=== PATIENT | male | born 1975 | race African-American/Black ===

== ENCOUNTER 2017-02-11 13:20 | Inpatient (IN) | payer OTHER ==
[2017-02-11 14:02] VITALS: BMI 34.8
--- NOTE | 2017-02-11 16:37 | HP ---
CIWA Score - CIWA Score Nausea/Vomitin-Mild Nausea/No Vomiting Muscle Tremors: 2 Anxiety: 1-Mildly Anxious Agitation: 1-Slight > Activity Paroxysmal Sweats: 2 Orientation: 1-Uncertain about Date Tacttile Disturbances: 1-Very Mild Itch/Numbness Auditory Disturbances: 1-Very Mild Visual Disturbances: 1-Very Mild Sensitivity Headache: 2-Mild CIWA-Ar Total Score: 13 Admission ROS BHS - HPI Chief Complaint: WITHDRAWAL SYMPTOMS Allergies/Adverse Reactions: Allergies Allergy/AdvReac Type Severity Reaction Status Date / Time fluphenazine [From Prolixin] Allergy Intermediate Swelling Verified 02/11/17 14: 39 haloperidol [From Haldol] Allergy Intermediate Swelling Verified 02/11/17 14:38 History of Present Illness: 41 Y.O. MAN WITH AN EXTENSIVE HISTORY OF ALCOHOL DEPENDENCE IS HERE SEEKING HIS FIRST ADMISSION INTO DETOX. DOES NOT HAVE A SIGNIFICANT PERIOD OF SOBRIETY. Exam Limitations: No Limitations - Ebola screening Have you traveled outside of the country in the last 21 days: No Have you had contact with anyone from an Ebola affected area: No Have you been sick,other than usual withdrawal symptoms: No Do you have a fever: No - Review of Systems Constitutional: No Symptoms Reported EENT: reports: No Symptoms Reported Respiratory: reports: No Symptoms reported Cardiac: reports: No Symptoms Reported GI: reports: No Symptoms Reported : reports: No Symptoms Reported Musculoskeletal: reports: No Symptoms Reported Integumentary: reports: No Symptoms Reported Neuro: reports: No Symptoms reported Endocrine: reports: No Symptoms Reported Hematology: reports: No Symptoms Reported Psychiatric: reports: other (H/O BIPOLAR AND SCHIZOPHRENIA) Other Systems: Reviewed and Negative Patient History - Patient Medical History Hx Anemia: No Hx Asthma: No Hx Chronic Obstructive Pulmonary Disease (COPD): No Hx Cancer: No Hx Cardiac Disorders: No Hx Congestive Heart Failure: No Hx Hypertension: No Hx Hypercholesterolemia: No Hx Pacemaker: No HX Cerebrovascular Accident: No Hx Seizures: No Hx Dementia: No Hx Diabetes: No Hx Gastrointestinal Disorders: No Hx Liver Disease: No Hx Genitourinary Disorders: No Hx Sexually Transmitted Disorders: No Hx Renal Disease (ESRD): No Hx Thyroid Disease: No Hx Human Immunodeficiency Virus (HIV): No Hx Hepatitis C: No Hx Depression: No Hx Suicide Attempt: No Hx Bipolar Disorder: Yes Hx Schizophrenia: Yes - Patient Surgical History Past Surgical History: No - PPD History Previous Implant?: Yes Documented Results: Negative w/o proof Implanted On Prior [facility] Admission?: No PPD to be Administered?: Yes - Reproductive History Patient is a Female of Child Bearing Age (11 -55 yrs old): No - Smoking Cessation Smoking history: Current every day smoker Have you smoked in the past 12 months: Yes Aproximately how many cigarettes per day: 10 Hx Chewing Tobacco Use: No Initiated information on smoking cessation: Yes 'Breaking Loose' booklet given: 02/11/17 - Substance & Tx. History Hx Alcohol Use: Yes Hx Substance Use: Yes Substance Use Type: Alcohol, Cocaine, Heroin Hx Substance Use Treatment: No - Substances Abused Alcohol Route: Oral Frequency: Daily Amount used: vodka(1 pint) Age of first use: 16 Date of Last Use: 02/11/17 Cocaine Route: Inhalation Frequency: Daily Amount used: $20 Age of first use: 18 Date of Last Use: 02/10/17 Heroin Route: Inhalation Frequency: 1-2 times per week Amount used: 1 BAG Age of first use: 18 Date of Last Use: 02/07/17 Family Disease History - Family Disease History Family History: Denies Admission Physical Exam S - Vital Signs Vital Signs: Vital Signs - 24 hr 02/11/17 14:00 Temperature 96.2 F L Pulse Rate 58 L Respiratory 18 Rate Blood Pressure 124/75 - Physical General Appearance: Yes: Disheveled, Irritable HEENTM: Yes: Hearing grossly Normal, Normal ENT Inspection, Normocephalic Respiratory: Yes: Chest Non-Tender, Lungs Clear, Normal Breath Sounds, No Respiratory Distress, No Accessory Muscle Use Neck: Yes: No masses,lesions,Nodules, Trachea in good position Breast: Yes: Within Normal Limits Cardiology: Yes: Regular Rhythm, Bradycardia Abdominal: Yes: Normal Bowel Sounds, Non Tender Genitourinary: Yes: Other (NO COMPLAINTS REPORTED) Back: Yes: Normal Inspection Musculoskeletal: Yes: full range of Motion Extremities: Yes: Normal Capillary Refill, Normal Inspection, Non-Tender Neurological: Yes: enamel finisher II-XII NML intact Integumentary: Yes: Normal Color, Dry, Warm Lymphatic: Yes: Within Normal Limits - Diagnostic (1) Alcohol dependence with uncomplicated withdrawal Current Visit: Yes Status: Chronic (2) Cocaine dependence, uncomplicated Current Visit: Yes Status: Chronic (3) Nicotine dependence Current Visit: Yes Status: Chronic Cleared for Admission [facility] - Detox or Rehab [facility] Level of Care: Medically Managed Detox Regimen/Protocol: Librium [facility] Breath Alcohol Content Breath Alcohol Content: 0 Urine Drug Screen - Results Drug Screen Negative: No Urine Drug Screen Results: LENA-Cocaine
[2017-02-11] MEDS ORDERED: ACETAMINOPHEN 325 MG TABLET (FP) PO PRN (16:48)
[2017-02-11] MEDS ORDERED: hydrOXYzine PAMOATE 50 MG CAPSULE (FP) PO PRN (16:48)
[2017-02-11] MEDS ORDERED: chlordiazePOXIDE HCL 25 MG CAPSULE PO PRN (16:48)
[2017-02-11] MEDS ORDERED: MAGNESIUM CITRATE 300 ML BOTTLE PO PRN (16:48)
[2017-02-11] MEDS ORDERED: MAG HYDROX/AL HYDROX/SIMETH 30 ML UNIT-DOSE CUP PO PRN (16:48)
[2017-02-11] MEDS ORDERED: NICOTINE POLACRILEX 2 MG GUM BC PRN (16:48)
[2017-02-11] MEDS ORDERED: MAGNESIUM HYDROX 2400MG/30ML ORAL SUSPENSION 30 ML CUP PO PRN (16:48)
[2017-02-11] MEDS ORDERED: guaiFENesin/D-METHORPHAN HB 10 ML UNIT-DOSE CUPS PO PRN (16:48)
[2017-02-11] MEDS ORDERED: MENTHOL/PHENOL 1 EACH UD MM PRN (16:48)
[2017-02-11] MEDS ORDERED: LOPERAMIDE HCL 2 MG CAPSULE PO PRN (16:48)
[2017-02-11] MEDS ORDERED: P-EPHED 60MG/TRIPROLIDI 2.5MG TABLET PO PRN (16:48)
[2017-02-11] MEDS ORDERED: chlordiazePOXIDE HCL 25 MG CAPSULE PO ONE (17:45)
[2017-02-11] MEDS ORDERED: LIDOCAINE VISCOUS 2% ORAL/TOP 20 ML UNIT-DOSE CUP MM PRN (18:42)
[2017-02-11] MEDS: IBUPROFEN 400 MG TABLET (FP) PO PRN (18:44)
[2017-02-11 22:03] LABS: URINE APPEARANCE CLEAR; URINE BILIRUBIN NEGATIVE (NEGATIVE); URINE BLOOD NEGATIVE (NEGATIVE); URINE COLOR YELLOW; URINE GLUCOSE (UA) NEGATIVE (NEGATIVE); URINE KETONE NEGATIVE (NEGATIVE); URINE LEUK ESTERASE NEGATIVE (NEGATIVE); URINE NITRITE NEGATIVE (NEGATIVE); URINE PROTEIN NEGATIVE (NEGATIVE); URINE UROBILINOGEN NEGATIVE mg/dL (0.2-1.0)
[2017-02-11] MEDS: THIAMINE HCL 100 MG TABLET (FP) PO SCH (23:40)
[2017-02-11] MEDS: chlordiazePOXIDE HCL 25 MG CAPSULE PO SCH (23:40)
[2017-02-12] MEDS: chlordiazePOXIDE HCL 25 MG CAPSULE PO SCH ×4 (06:00→22:24)
[2017-02-12] MEDS: IBUPROFEN 400 MG TABLET (FP) PO PRN ×2 (06:02→22:24)
[2017-02-12] MEDS ORDERED: NICOTINE 14 MG/24 HOURS TOPICAL PATCH TD SCH (10:00)
[2017-02-12] MEDS ORDERED: PRENATAL VITAMINS W/ FOLIC ACID TABLET (FP) PO SCH (10:00)
[2017-02-12 10:44] LABS: MCH 31.3 pg (25.7-33.7); MCHC 32.7 g/dl (32.0-35.9); MEAN CELL VOLUME 95.8 fl (80-96); MEAN PLT VOLUME 8.2 fl (7.5-11.1); PLATELET COUNT 215 K/MM3 (134-434); RDW 13.9 % (11.9-15.9); WHITE BLOOD COUNT 5.7 K/mm3 (4.0-10.0)
[2017-02-12 11:15] LABS: ALBUMIN 3.4 g/dl (3.4-5.0); ANION GAP 7 (8-16); CALCIUM 8.1 mg/dL (8.5-10.1); CO2 27 mmol/L (21-32); GLUCOSE,RANDOM 80 mg/dL (74-106)
[2017-02-12 11:19] LABS: ALK PHOS 68 U/L (45-117); BILIRUBIN,TOTAL 0.6 mg/dL (0.2-1.0); SGOT/AST 26 U/L (15-37); SGPT/ALT 33 U/L (12-78); TOT PROT 6.5 g/dl (6.4-8.2)
--- NOTE | 2017-02-12 11:52 | CONSULT ---
[facility] Psychiatric Consult - Data Date of interview: 02/12/17 Admission source: [facility] Identifying data: First admission to [facility] for this 41 y/o AA male seeking detox treatment on for alcohol,cocaine and heroin dependence.Patient is single,a father of one,homeless,unemployed and supported on food stamps. Substance Abuse History: Confirmed by patient in this interview.See current [facility] report for details : Smoking history: Current every day smoker. Have you smoked in the past 12 months: Yes. Aproximately how many cigarettes per day: 10. Hx Chewing Tobacco Use: No. Initiated information on smoking cessation: Yes. 'Breaking Loose' booklet given: 02/11/17. - Substance & Tx. History. Hx Alcohol Use: Yes. Hx Substance Use: Yes. Substance Use Type: Alcohol, Cocaine , Heroin. Hx Substance Use Treatment: No. - Substances Abused. Alcohol. Route: Oral. Frequency: Daily. Amount used: vodka(1 pint). Age of first use: 16. Date of Last Use: 02/11/17. Cocaine. Route: Inhalation. Frequency: Daily. Amount used: $20. Age of first use: 18. Date of Last Use: 02/10/17. * * Heroin. Route: Inhalation. Frequency: 1-2 times per week. Amount used: 1 BAG. Age of first use: 18. Date of Last Use: 02/07/17 Medical History: Patient endorses good general health. Psychiatric History: Patient admits to a history of " a few " psychiatric hospitalizations.Diagnosed with Schizophrena as per self-report.Prescribed seroquel 100 mg po bid.Not taken for past five days.Mr Mendoza indicates that he gets his outpatient psychiatric services at the [facility]PD clinic in [facility].He admis to one suicide attempt,via wrist-cutting,in 2006. Physical/Sexual Abuse/Trauma History: No reported history of abuse. Additional Comment: Urine Drug Screen Results: LENA-Cocaine.Noted. Mental Status Exam - Mental Status Exam Alert and Oriented to: Time, Place, Person Cognitive Function: Good Patient Appearance: Well Groomed Mood: Nervous, Withdrawn Affect: Mood Congruent Patient Behavior: Sedated (mildly sedated but able to provide meaningful history ), Fatigued, Appropriate, Cooperative Speech Pattern: Clear, Slurred Voice Loudness: Normal Thought Process: Goal Oriented Thought Disorder: Not Present Hallucinations: Denies Suicidal Ideation: Denies Homicidal Ideation: Denies Insight/Judgement: Poor Sleep: Well Appetite: Good Muscle strength/Tone: Normal Gait/Station: Normal Psychiatric Findings - Problem List ([place] 1, 2,3) (1) Alcohol dependence with uncomplicated withdrawal Current Visit: Yes Status: Acute (2) Cocaine dependence, uncomplicated Current Visit: Yes Status: Acute (3) Nicotine dependence Current Visit: Yes Status: Acute (4) Heroin dependence Current Visit: Yes Status: Acute (5) Substance induced mood disorder Current Visit: Yes Status: Acute (6) Schizophrenia Current Visit: Yes Status: Chronic Comment: Reported by patient.No symptoms elicited at time of this examination.Currently on medications/ OPD care at [facility] health clinic. - Initial Treatment Plan Initial Treatment Plan: Psychoeducation.Detoxification.Medication : seroquel 100 mg po hs.Side effects/benefits discussed with patient.Mr Davila expresses his agreement to this careplan.Observation.
--- NOTE | 2017-02-12 17:21 | PN ---
[facility] CIWA - CIWA Score Nausea/Vomitin-No Nausea/No Vomiting Muscle Tremors: 4-Moderate,w/Arms Extend Anxiety: 3 Agitation: 0-Normal Activity Paroxysmal Sweats: 3 Orientation: 2-Disoriented Date<2 days Tacttile Disturbances: 2-Mild Itch/Numbness/Burn Auditory Disturbances: 0-None Visual Disturbances: 0-None Headache: 4-Moderately Severe CIWA-Ar Total Score: 18 BHS Progress Note (SOAP) Subjective: Sweating, H/A, Tremors, Fatigue. Objective: PT. A & O X 2 (UNCERTAIN ABOUT CURRENT DAY /DATE). PT. OBSERVED AMBULATING ON UNIT. NO ACUTE DISTRESS. 02/12/17 17:20 Vital Signs Temperature 97.8 F 02/12/17 13:59 Pulse Rate 73 02/12/17 13:59 Respiratory Rate 19 02/12/17 13:59 Blood Pressure 136/82 02/12/17 13:59 O2 Sat by Pulse Oximetry (%) Laboratory Tests 02/11/17 02/12/17 02/12/17 21:00 08:00 08:00 WBC 5.7 RBC 4.65 Hgb 14.6 Hct 44.5 MCV 95.8 MCH 31.3 MCHC 32.7 RDW 13.9 Plt Count 215 MPV 8.2 Sodium 140 Potassium 4.1 Chloride 106 Carbon Dioxide 27 Anion Gap 7 L BUN 13 Creatinine 1.0 Creat Clearance w eGFR > 60 Random Glucose 80 Calcium 8.1 L Total Bilirubin 0.6 AST 26 ALT 33 Alkaline Phosphatase 68 Total Protein 6.5 Albumin 3.4 Urine Color Yellow Urine Appearance Clear Urine pH 6.0 Ur Specific [place] 1.019 Urine Protein Negative Urine Glucose (UA) Negative Urine Ketones Negative Urine Blood Negative Urine Nitrite Negative Urine Bilirubin Negative Urine Urobilinogen Negative RPR Titer 02/12/17 08:00 WBC RBC Hgb Hct MCV MCH MCHC RDW Plt Count MPV Sodium Potassium Chloride Carbon Dioxide Anion Gap BUN Creatinine Creat Clearance w eGFR Random Glucose Calcium Total Bilirubin AST ALT Alkaline Phosphatase Total Protein Albumin Urine Color Urine Appearance Urine pH Ur Specific [place] Urine Protein Urine Glucose (UA) Urine Ketones Urine Blood Urine Nitrite Urine Bilirubin Urine Urobilinogen RPR Titer Nonreactive LABS NOTED. Assessment: 02/12/17 17:20 WITHDRAWAL SYMPTOMS. Plan: CONTINUE DETOX.
[2017-02-12] MEDS ORDERED: QUEtiapine FUMARATE 100 MG TABLET (FP) PO SCH (22:00)
[2017-02-12] MEDS: THIAMINE HCL 100 MG TABLET (FP) PO SCH (22:23)
[2017-02-12 23:18] LABS: URINE LEUK ESTERASE Negative (NEGATIVE)
[2017-02-13] MEDS: chlordiazePOXIDE HCL 25 MG CAPSULE PO SCH (06:00)
[2017-02-13 06:48] VITALS: BP 124/84; PULSE 59; TEMP 97.6
--- NOTE | 2017-02-13 12:21 | DS ---
[facility] Detox Discharge Summary Admission Date: 02/11/17 Discharge Date: 02/13/17 - History Present History: Alcohol Dependence, Cocaine Dependence, Opioid Dependence Pertinent Past History: Denies - Physical Exam Results Vital Signs: Vital Signs Temperature 97.6 F 02/13/17 06:47 Pulse Rate 59 L 02/13/17 06:47 Respiratory Rate 18 02/13/17 06:47 Blood Pressure 124/84 02/13/17 06:47 O2 Sat by Pulse Oximetry (%) Pertinent Admission Physical Exam Findings: Withdrawal symptoms Laboratory Tests 02/11/17 02/12/17 02/12/17 21:00 08:00 08:00 WBC 5.7 RBC 4.65 Hgb 14.6 Hct 44.5 MCV 95.8 MCH 31.3 MCHC 32.7 RDW 13.9 Plt Count 215 MPV 8.2 Sodium 140 Potassium 4.1 Chloride 106 Carbon Dioxide 27 Anion Gap 7 L BUN 13 Creatinine 1.0 Creat Clearance w eGFR > 60 Random Glucose 80 Calcium 8.1 L Total Bilirubin 0.6 AST 26 ALT 33 Alkaline Phosphatase 68 Total Protein 6.5 Albumin 3.4 Urine Color Yellow Urine Appearance Clear Urine pH 6.0 Ur Specific [place] 1.019 Urine Protein Negative Urine Glucose (UA) Negative Urine Ketones Negative Urine Blood Negative Urine Nitrite Negative Urine Bilirubin Negative Urine Urobilinogen Negative Ur Leukocyte Esterase Negative RPR Titer 02/12/17 08:00 WBC RBC Hgb Hct MCV MCH MCHC RDW Plt Count MPV Sodium Potassium Chloride Carbon Dioxide Anion Gap BUN Creatinine Creat Clearance w eGFR Random Glucose Calcium Total Bilirubin AST ALT Alkaline Phosphatase Total Protein Albumin Urine Color Urine Appearance Urine pH Ur Specific [place] Urine Protein Urine Glucose (UA) Urine Ketones Urine Blood Urine Nitrite Urine Bilirubin Urine Urobilinogen Ur Leukocyte Esterase RPR Titer Nonreactive Labs noted - Medication Discharge Medications: Ambulatory Orders Diphenhydramine [Benadryl Capsule -] 50 mg PO HS 02/11/17 Quetiapine Fumarate [Seroquel -] 100 mg PO BID 02/11/17 - Diagnosis (1) Opiate dependence Status: Chronic (2) Alcohol dependence with uncomplicated withdrawal Status: Acute (3) Cocaine dependence, uncomplicated Status: Chronic (4) Nicotine dependence Status: Chronic Qualifiers: Nicotine product type: cigarettes Substance use status: uncomplicated Qualified Code(s): F17.210 - Nicotine dependence, cigarettes, uncomplicated - AMA Did Patient Leave Against Medical Advice: Yes (F/U with PCP within 3 days or sooner if warranted)
[2017-02-13] MEDS ORDERED: chlordiazePOXIDE 5 MG CAPSULE PO SCH (23:00)
[2017-02-14] MEDS ORDERED: chlordiazePOXIDE HCL 10 MG CAPSULE PO SCH (23:00)
--- NOTE | 2017-02-15 01:57 | EKG ---
Test Reason : Blood Pressure : / mmHG Vent. Rate : 064 BPM Atrial Rate : 064 BPM P-R Int : 174 ms QRS Dur : 094 ms QT Int : 396 ms P-R-T Axes : 055 067 057 degrees QTc Int : 408 ms NORMAL SINUS RHYTHM WITH SINUS ARRHYTHMIA NORMAL ECG NO PREVIOUS ECGS AVAILABLE Confirmed by ANGELI CASANOVA, MARIANN ([id number]) on 02/15/2017 1:57:29 AM Referred By: Confirmed By:MARIANN SUH MD
== END 2017-02-13 08:40 | disposition left against medical advice (07) | DRG 770 ==
LOC: YASAS 13:20 → Y3N 17:16
PROVIDERS: ADMIT Internal Medicine; ATTEND Internal Medicine
PROC: HZ2ZZZZ Detoxification Services for Substance Abuse Treatment (ICD-10-PCS; principal; 2017-02-11)
DX: F11.23 Opioid dependence with withdrawal (principal); F10.230 Alcohol dependence with withdrawal, uncomplicated; F14.20 Cocaine dependence, uncomplicated; F17.210 Nicotine dependence, cigarettes, uncomplicated; F19.24 Other psychoactive substance dependence with psychoactive substance-induced mood disorder; F20.9 Schizophrenia, unspecified
CPT/HCPCS: 36415; 80053; 81003; 85027; 86593; 93005; 93010

== ENCOUNTER 2017-03-22 13:08 | Inpatient (IN) | payer OTHER ==
--- NOTE | 2017-03-22 21:50 | HP ---
COWS - Scale Resting Pulse: 0= [place] 80 or Below Sweatin=Flushed/Facial Moisture Restless Observation: 1= Difficult to Sit Still Pupil Size: 1= Pupils >than Normal Bone or Joint Aches: 4=Acute Joint/Muscle Pain Runny Nose/ Eye Tearin= None GI Upset > 30mins: 2= Nausea/Diarrhea ([place]ARR[place] X 4) Tremor Observation: 2= Slight Tremor Visible Yawning Observation: 0= None Anxiety or Irritability: 4=Extreme Anxiety Goose Flesh Skin: 0=Smooth Skin COWS Score: 16 CIWA Score - CIWA Score Nausea/Vomitin Muscle Tremors: 4-Moderate,w/Arms Extend Anxiety: 3 Agitation: 2 Paroxysmal Sweats: No Perspiration Orientation: 1-Uncertain about Date Tacttile Disturbances: 0-None Auditory Disturbances: 0-None Visual Disturbances: 0-None Headache: 4-Moderately Severe CIWA-Ar Total Score: 17 Admission ROS BHS - HPI Chief Complaint: Withdrawal symptoms Allergies/Adverse Reactions: Allergies Allergy/AdvReac Type Severity Reaction Status Date / Time fluphenazine [From Prolixin] Allergy Intermediate Swelling Verified 03/22/17 18: 54 haloperidol [From Haldol] Allergy Intermediate Swelling Verified 03/22/17 18:54 History of Present Illness: 41 years old male with a long history of alcohol and benzodiazepine dependence is admitted to detox. Patient has been in previous detox and reports insignificant period of sobriety. Patient reports medical history of HTN and depression. He denies suicidal ideation at this time. Exam Limitations: No Limitations - Ebola screening Have you traveled outside of the country in the last 21 days: No Have you had contact with anyone from an Ebola affected area: No Have you been sick,other than usual withdrawal symptoms: No - Review of Systems Constitutional: Loss of Appetite, Malaise, Night Sweats, Changes in sleep, Weakness EENT: reports: Blurred Vision Respiratory: reports: No Symptoms reported Cardiac: reports: No Symptoms Reported GI: reports: Diarrhea, Nausea, Poor Appetite, Poor Fluid Intake, Vomiting : reports: No Symptoms Reported Musculoskeletal: reports: Back Pain, Muscle Pain, Muscle Weakness Neuro: reports: Headache, Tingling, Tremors Endocrine: reports: Flushing Hematology: reports: No Symptoms Reported Psychiatric: reports: Orientated x3, Agitated, Anxious Other Systems: Reviewed and Negative Patient History - Patient Medical History Hx Anemia: No Hx Asthma: No Hx Chronic Obstructive Pulmonary Disease (COPD): No Hx Cardiac Disorders: No Hx Congestive Heart Failure: No Hx Hypertension: Yes Hx Hypercholesterolemia: No Hx Pacemaker: No HX Cerebrovascular Accident: No Hx Seizures: No Hx Dementia: No Hx Diabetes: No Hx Gastrointestinal Disorders: No Hx Liver Disease: No Hx Genitourinary Disorders: No Hx Sexually Transmitted Disorders: No Hx Renal Disease (ESRD): No Hx Thyroid Disease: No Hx Human Immunodeficiency Virus (HIV): No (Negative) Hx Hepatitis C: No Hx Depression: No Hx Suicide Attempt: No Hx Bipolar Disorder: Yes Hx Schizophrenia: Yes - Patient Surgical History Past Surgical History: No Hx Neurologic Surgery: No Hx Cataract Extraction: No Hx Cardiac Surgery: No Hx Lung Surgery: No Hx Abdominal Surgery: No Hx Appendectomy: No Hx Cholecystectomy: No Hx Genitourinary Surgery: No Hx Section: No Hx Orthopedic Surgery: No Anesthesia Reaction: No - PPD History Previous Implant?: No Documented Results: Negative w/proof Implanted On Prior [facility] Admission?: No PPD to be Administered?: Yes - Reproductive History Patient is a Female of Child Bearing Age (11 -55 yrs old): No (MALE) - Smoking Cessation Smoking history: Current every day smoker Have you smoked in the past 12 months: Yes Aproximately how many cigarettes per day: 10 Hx Chewing Tobacco Use: No Initiated information on smoking cessation: Yes 'Breaking Loose' booklet given: 03/22/17 - Substance & Tx. History Hx Alcohol Use: Yes Hx Substance Use: Yes Substance Use Type: Cocaine Hx Substance Use Treatment: Yes ([facility]) - Substances Abused Alcohol Route: Oral Frequency: Daily Amount used: liquor- 3 pints, beer- 2 six packs Age of first use: 21 Date of Last Use: 03/21/17 Alprazolam (Xanax) Route: Oral Frequency: Daily Amount used: 4mg Age of first use: 36 Date of Last Use: 03/21/17 Family Disease History - Family Disease History Family History: Denies Admission Physical Exam S - Vital Signs Vital Signs: Vital Signs - 24 hr 03/22/17 16:03 Temperature 96.6 F L Pulse Rate 75 Respiratory 20 Rate Blood Pressure 157/106 - Physical General Appearance: Yes: Moderate Distress HEENTM: Yes: EOMI, Normal Voice, GOMEZ Respiratory: Yes: Lungs Clear, Normal Breath Sounds, No Respiratory Distress Neck: Yes: Supple Breast: Yes: Breast Exam Deferred Cardiology: Yes: Regular Rhythm, Regular Rate, S1, S2 Abdominal: Yes: Normal Bowel Sounds, Soft Genitourinary: Yes: Within Normal Limits Back: Yes: Within Normal Limits Musculoskeletal: Yes: Back pain, Muscle Pain, Muscle weakness Extremities: Yes: Tremors Neurological: Yes: Alert, Normal Mood/Affect, Normal Response Integumentary: Yes: Warm Lymphatic: Yes: Within Normal Limits - Diagnostic (1) Sedative, hypnotic or anxiolytic dependence with withdrawal, uncomplicated Current Visit: Yes Status: Chronic (2) HTN (hypertension) Current Visit: Yes Status: Chronic (3) Depression Current Visit: Yes Status: Chronic (4) Alcohol dependence with uncomplicated withdrawal Current Visit: Yes Status: Chronic (5) Cocaine dependence, uncomplicated Current Visit: Yes Status: Chronic (6) Nicotine dependence Current Visit: Yes Status: Chronic Qualifiers: Nicotine product type: cigarettes Substance use status: uncomplicated Qualified Code(s): F17.210 - Nicotine dependence, cigarettes, uncomplicated Cleared for Admission [facility] - Detox or Rehab [facility] Level of Care: Medically Managed Detox Regimen/Protocol: Valium [facility] Breath Alcohol Content Breath Alcohol Content: 0 Urine Drug Screen - Results Drug Screen Negative: No Urine Drug Screen Results: LENA-Cocaine, BZO-Benzodiazepines
[2017-03-22] MEDS ORDERED: LOPERAMIDE HCL 2 MG CAPSULE PO PRN (21:59)
[2017-03-22] MEDS ORDERED: MENTHOL/PHENOL 1 EACH UD MM PRN (21:59)
[2017-03-22] MEDS ORDERED: MAGNESIUM HYDROX 2400MG/30ML ORAL SUSPENSION 30 ML CUP PO PRN (21:59)
[2017-03-22] MEDS ORDERED: guaiFENesin/D-METHORPHAN HB 10 ML UNIT-DOSE CUPS PO PRN (21:59)
[2017-03-22] MEDS ORDERED: ACETAMINOPHEN 325 MG TABLET (FP) PO PRN (21:59)
[2017-03-22] MEDS ORDERED: diazePAM 5 MG TABLET PO ONE ×3 (21:59→23:30)
[2017-03-22] MEDS ORDERED: MAG HYDROX/AL HYDROX/SIMETH 30 ML UNIT-DOSE CUP PO PRN (21:59)
[2017-03-22] MEDS ORDERED: diazePAM 5 MG TABLET PO PRN ×2 (21:59→22:56)
[2017-03-22] MEDS ORDERED: MAGNESIUM CITRATE 300 ML BOTTLE PO PRN (21:59)
[2017-03-22] MEDS ORDERED: P-EPHED 60MG/TRIPROLIDI 2.5MG TABLET PO PRN (21:59)
[2017-03-22] MEDS ORDERED: IBUPROFEN 400 MG TABLET (FP) PO PRN (21:59)
[2017-03-22 22:06] VITALS: BMI 32.1
[2017-03-22] MEDS: THIAMINE HCL 100 MG TABLET (FP) PO SCH (23:24)
[2017-03-22] MEDS: diazePAM 5 MG TABLET PO SCH ×4 (23:24→23:25)
[2017-03-22 23:59] LABS: URINE APPEARANCE CLOUDY; URINE BILIRUBIN NEGATIVE (NEGATIVE); URINE BLOOD NEGATIVE (NEGATIVE); URINE COLOR YELLOW; URINE GLUCOSE (UA) NEGATIVE (NEGATIVE); URINE KETONE NEGATIVE (NEGATIVE); URINE LEUK ESTERASE TRACE (NEGATIVE); URINE NITRITE NEGATIVE (NEGATIVE); URINE PROTEIN NEGATIVE (NEGATIVE)
[2017-03-23 00:24] LABS: GRANULAR CASTS 42 /lpf; URINE HYALINE CAST 5 /lpf; URINE MUCUS RARE; YEAST MODERATE
[2017-03-23] MEDS: diazePAM 5 MG TABLET PO SCH ×3 (06:47→22:35)
--- NOTE | 2017-03-23 09:25 | CONSULT ---
[facility] Psychiatric Consult - Data Date of interview: 03/23/17 Admission source: [facility] Identifying data: This is 41 years old male with no psychiatric hospitalization history iontoxicated with: Alcohol, Xanax, Cocaine and Nicotine Substance Abuse History: - Smoking Cessation. Smoking history: Current every day smoker. Have you smoked in the past 12 months: Yes. Aproximately how many cigarettes per day: 10. Hx Chewing Tobacco Use: No. Initiated information on smoking cessation: Yes. 'Breaking Loose' booklet given: 03/22/17. - Substance & Tx. History. Hx Alcohol Use: Yes. Hx Substance Use: Yes. Substance Use Type : Cocaine. Hx Substance Use Treatment: Yes ([facility] - Substances Abused. Alcohol. Route: Oral. Frequency: Daily. Amount used: liquor- 3 pints, beer- 2 six packs. Age of first use: 21. Date of Last Use: 03/21/17. Alprazolam (Xanax). Route: Oral. Frequency: Daily. Amount used: 4mg. Age of first use: 36. Date of Last Use: 03/21/17 Medical History: HTN Psychiatric History: Patient reports history of depression, denies suicidal history, reports talong prior to admission: Seroquel 100mg po bid. Benadryl 50mg po qhs Physical/Sexual Abuse/Trauma History: Denies Additional Comment: Seroquel 100mg po bid. Benadryl 50mg po qhs Mental Status Exam - Mental Status Exam Alert and Oriented to: Person Cognitive Function: Fair Patient Appearance: Unkempt Mood: Sad Affect: Mood Congruent Patient Behavior: Sedated Speech Pattern: Delayed Voice Loudness: Mildly Soft/Quiet Thought Process: Circumstantial Thought Disorder: Being Controlled Hallucinations: Denies Suicidal Ideation: Denies Homicidal Ideation: Denies Insight/Judgement: Fair Sleep: Difficulty falling asleep Appetite: Fair Muscle strength/Tone: Normal Gait/Station: Shuffling Additional Comments: Seroquel 100mg po bid. Benadryl 50mg po qhs Psychiatric Findings - Problem List ([place] 1, 2,3) (1) Alcohol dependence with uncomplicated withdrawal Current Visit: Yes Status: Chronic (2) Cocaine dependence, uncomplicated Current Visit: Yes Status: Chronic (3) Nicotine dependence Current Visit: Yes Status: Chronic Qualifiers: Nicotine product type: cigarettes Substance use status: uncomplicated Qualified Code(s): F17.210 - Nicotine dependence, cigarettes, uncomplicated (4) Sedative, hypnotic or anxiolytic dependence with withdrawal, uncomplicated Current Visit: Yes Status: Chronic (5) Heroin dependence Current Visit: No Status: Acute (6) Substance induced mood disorder Current Visit: No Status: Acute (7) Opiate dependence Current Visit: No Status: Chronic - Initial Treatment Plan Initial Treatment Plan: Seroquel 100mg po bid. Benadryl 50mg po qhs
--- NOTE | 2017-03-23 10:17 | EKG ---
Test Reason : Blood Pressure : / mmHG Vent. Rate : 069 BPM Atrial Rate : 069 BPM P-R Int : 150 ms QRS Dur : 098 ms QT Int : 390 ms P-R-T Axes : 049 057 055 degrees QTc Int : 417 ms NORMAL SINUS RHYTHM NONSPECIFIC T WAVE ABNORMALITY ABNORMAL ECG WHEN COMPARED WITH ECG OF 11-FEB-2017 18:47, NO SIGNIFICANT CHANGE WAS FOUND Confirmed by DESTINY CASANOVA, YUNIER ([id number]) on 03/23/2017 10:16:50 AM Referred By: Confirmed By:YUNIER DIXON MD
[2017-03-23] MEDS: diazePAM 5 MG TABLET PO PRN (10:24)
[2017-03-23] MEDS: PRENATAL VITAMINS W/ FOLIC ACID TABLET (FP) PO SCH (10:24)
[2017-03-23] MEDS: QUEtiapine FUMARATE 100 MG TABLET (FP) PO SCH ×2 (10:25→22:37)
[2017-03-23 10:26] LABS: ALBUMIN 3.7 g/dl (3.4-5.0); ANION GAP 8 (8-16); BLOOD UREA NITROGEN 11 mg/dL (7-18); CALCIUM 8.8 mg/dL (8.5-10.1); CHLORIDE 104 mmol/L (98-107); CO2 29 mmol/L (21-32); CREATININE 0.9 mg/dL (0.7-1.3); GLUCOSE,RANDOM 95 mg/dL (74-106); POTASSIUM 3.7 mmol/L (3.5-5.1); SGOT/AST 34 U/L (15-37); SODIUM 141 mmol/L (136-145)
[2017-03-23 10:40] LABS: HEMATOCRIT 43.1 % (35.4-49); MCH 30.9 pg (25.7-33.7); MCHC 32.5 g/dl (32.0-35.9); MEAN CELL VOLUME 94.9 fl (80-96); MEAN PLT VOLUME 7.8 fl (7.5-11.1); PLATELET COUNT 228 K/MM3 (134-434); RBC 4.54 M/mm3 (4.00-5.60); RDW 13.6 % (11.9-15.9); WHITE BLOOD COUNT 7.1 K/mm3 (4.0-10.0)
[2017-03-23 11:37] LABS: ALK PHOS 81 U/L (45-117); BILIRUBIN,TOTAL 0.3 mg/dL (0.2-1.0); TOT PROT 6.9 g/dl (6.4-8.2)
--- NOTE | 2017-03-23 12:41 | PN ---
S CIWA - CIWA Score Nausea/Vomitin Muscle Tremors: 2 Anxiety: 3 Agitation: 3 Paroxysmal Sweats: 3 Orientation: 0-Oriented Tacttile Disturbances: 2-Mild Itch/Numbness/Burn Auditory Disturbances: 0-None Visual Disturbances: 0-None Headache: 1-Very Mild CIWA-Ar Total Score: 16 BHS COWS - Scale Resting Pulse: 1= NE 81-100 Sweatin= Chills/Flushing Restless Observation: 1= Difficult to Sit Still Pupil Size: 1= Pupils >than Normal Bone or Joint Aches: 2= Severe Diffuse Aches Runny Nose/ Eye Tearin= Nasal Congestion GI Upset > 30mins: 1= Stomach Cramp Tremor Observation of Outstretched Hands: 1= Tremor Erwin, Not Seen Yawning Observation: 1= 1-2x During Session Anxiety or Irritability: 2=Irritable/Anxious Goose Flesh Skin: 0=Smooth Skin COWS Score: 12 S Progress Note (SOAP) Subjective: IS , sweats, headache ,feet pins and needles Vital Signs Temperature 98.2 F 03/23/17 10:32 Pulse Rate 85 03/23/17 10:32 Respiratory Rate 20 03/23/17 10:32 Blood Pressure 150/91 03/23/17 10:32 O2 Sat by Pulse Oximetry (%) Laboratory Tests 03/22/17 03/23/17 03/23/17 20:45 07:00 07:00 WBC 7.1 RBC 4.54 Hgb 14.0 Hct 43.1 MCV 94.9 MCH 30.9 MCHC 32.5 RDW 13.6 Plt Count 228 MPV 7.8 Sodium 141 Potassium 3.7 Chloride 104 Carbon Dioxide 29 Anion Gap 8 BUN 11 Creatinine 0.9 Creat Clearance w eGFR > 60 Random Glucose 95 Calcium 8.8 Total Bilirubin 0.3 D AST 34 D Alkaline Phosphatase 81 Total Protein 6.9 Albumin 3.7 Urine Color Yellow Urine Appearance Cloudy Urine pH 6.0 Ur Specific Goodman 1.023 Urine Protein Negative Urine Glucose (UA) Negative Urine Ketones Negative Urine Blood Negative Urine Nitrite Negative Urine Bilirubin Negative Urine Urobilinogen 2.0 Ur Leukocyte Esterase Trace Urine WBC (Auto) 10 Urine RBC (Auto) 6 Hyaline Casts 5 Granular Casts 42 Urine Mucus Rare Urine Yeast Moderate RPR Titer 03/23/17 07:00 WBC RBC Hgb Hct MCV MCH MCHC RDW Plt Count MPV Sodium Potassium Chloride Carbon Dioxide Anion Gap BUN Creatinine Creat Clearance w eGFR Random Glucose Calcium Total Bilirubin AST Alkaline Phosphatase Total Protein Albumin Urine Color Urine Appearance Urine pH Ur Specific Goodman Urine Protein Urine Glucose (UA) Urine Ketones Urine Blood Urine Nitrite Urine Bilirubin Urine Urobilinogen Ur Leukocyte Esterase Urine WBC (Auto) Urine RBC (Auto) Hyaline Casts Granular Casts Urine Mucus Urine Yeast RPR Titer Nonreactive pt lying in bed feet w/o swelling Assessment: 03/23/17 12:43 withdrawal sx's neuropathy likely etoh Plan: cont. detox increase fluids neurontin 100mg tid
[2017-03-23 12:55] LABS: SGPT/ALT 40 U/L (12-78)
[2017-03-23] MEDS: GABAPENTIN 100 MG CAPSULE (FP) PO SCH ×2 (14:47→22:34)
--- NOTE | 2017-03-23 14:48 | EKG ---
Test Reason : Blood Pressure : / mmHG Vent. Rate : 070 BPM Atrial Rate : 070 BPM P-R Int : 158 ms QRS Dur : 090 ms QT Int : 398 ms P-R-T Axes : 057 053 051 degrees QTc Int : 429 ms NORMAL SINUS RHYTHM NORMAL ECG WHEN COMPARED WITH ECG OF 22-MAR-2017 23:56, T WAVE INVERSION NOW EVIDENT IN ANTERIOR LEADS Confirmed by DESTINY CASANOVA, YUNIER ([id number]) on 03/23/2017 2:47:56 PM Referred By: Confirmed By:YUNIER DIXON MD
[2017-03-23] MEDS ORDERED: diphenhydrAMINE HCL 25 MG CAPSULE (FP) PO ONE (20:44)
[2017-03-23] MEDS ORDERED: diphenhydrAMINE HCL 50 MG CAPSULE PO SCH (22:00)
[2017-03-23] MEDS: THIAMINE HCL 100 MG TABLET (FP) PO SCH (22:35)
[2017-03-23] MEDS ORDERED: cloNIDine HCL 0.1 MG TABLET PO ONE (23:15)
[2017-03-24] MEDS: diazePAM 5 MG TABLET PO PRN (02:49)
[2017-03-24] MEDS: GABAPENTIN 100 MG CAPSULE (FP) PO SCH ×2 (08:09→14:05)
[2017-03-24] MEDS ORDERED: diazePAM 5 MG TABLET PO SCH ×3 (10:00)
--- NOTE | 2017-03-24 10:11 | PN ---
[facility] CIWA - CIWA Score Nausea/Vomitin-No Nausea/No Vomiting Muscle Tremors: 4-Moderate,w/Arms Extend Anxiety: 4-Mod. Anxious/Guarded Agitation: 3 Paroxysmal Sweats: 1-Minimal Palms Moist Orientation: 0-Oriented Tacttile Disturbances: 0-None Auditory Disturbances: 0-None Visual Disturbances: 0-None Headache: 0-None Present CIWA-Ar Total Score: 12 BHS Progress Note (SOAP) Subjective: tremor anxiety sweat Objective: 03/24/17 10:12 Vital Signs Temperature 97.9 F 03/24/17 09:44 Pulse Rate 76 03/24/17 09:44 Respiratory Rate 18 03/24/17 09:44 Blood Pressure 145/104 03/24/17 09:44 O2 Sat by Pulse Oximetry (%) Laboratory Last Values WBC 7.1 K/mm3 (4.0-10.0) 03/23/17 07:00 RBC 4.54 M/mm3 (4.00-5.60) 03/23/17 07:00 Hgb 14.0 GM/dL (11.7-16.9) 03/23/17 07:00 Hct 43.1 % (35.4-49) 03/23/17 07:00 MCV 94.9 fl (80-96) 03/23/17 07:00 MCH 30.9 pg (25.7-33.7) 03/23/17 07:00 MCHC 32.5 g/dl (32.0-35.9) 03/23/17 07:00 RDW 13.6 % (11.9-15.9) 03/23/17 07:00 Plt Count 228 K/MM3 (134-434) 03/23/17 07:00 MPV 7.8 fl (7.5-11.1) 03/23/17 07:00 Sodium 141 mmol/L (136-145) 03/23/17 07:00 Potassium 3.7 mmol/L (3.5-5.1) 03/23/17 07:00 Chloride 104 mmol/L (98-107) 03/23/17 07:00 Carbon Dioxide 29 mmol/L (21-32) 03/23/17 07:00 Anion Gap 8 (8-16) 03/23/17 07:00 BUN 11 mg/dL (7-18) 03/23/17 07:00 Creatinine 0.9 mg/dL (0.7-1.3) 03/23/17 07:00 Creat Clearance w eGFR > 60 (>60) 03/23/17 07:00 Random Glucose 95 mg/dL (74-106) 03/23/17 07:00 Calcium 8.8 mg/dL (8.5-10.1) 03/23/17 07:00 Total Bilirubin 0.3 mg/dL (0.2-1.0) D 03/23/17 07:00 AST 34 U/L (15-37) D 03/23/17 07:00 ALT 40 U/L (12-78) D 03/23/17 07:00 Alkaline Phosphatase 81 U/L (45-117) 03/23/17 07:00 Total Protein 6.9 g/dl (6.4-8.2) 03/23/17 07:00 Albumin 3.7 g/dl (3.4-5.0) 03/23/17 07:00 Urine Color Yellow 03/22/17 20:45 Urine Appearance Cloudy 03/22/17 20:45 Urine pH 6.0 (5.0-8.0) 03/22/17 20:45 Ur Specific [place] 1.023 (1.001-1.035) 03/22/17 20:45 Urine Protein Negative (NEGATIVE) 03/22/17 20:45 Urine Glucose (UA) Negative (NEGATIVE) 03/22/17 20:45 Urine Ketones Negative (NEGATIVE) 03/22/17 20:45 Urine Blood Negative (NEGATIVE) 03/22/17 20:45 Urine Nitrite Negative (NEGATIVE) 03/22/17 20:45 Urine Bilirubin Negative (NEGATIVE) 03/22/17 20:45 Urine Urobilinogen 2.0 mg/dL (0.2-1.0) 03/22/17 20:45 Ur Leukocyte Esterase Trace (NEGATIVE) 03/22/17 20:45 Urine WBC (Auto) 10 /hpf (3-5) 03/22/17 20:45 Urine RBC (Auto) 6 /hpf (0-3) 03/22/17 20:45 Hyaline Casts 5 /lpf 03/22/17 20:45 Granular Casts 42 /lpf 03/22/17 20:45 Urine Mucus Rare 03/22/17 20:45 Urine Yeast Moderate 03/22/17 20:45 RPR Titer Nonreactive (NONREACTIVE) 03/23/17 07:00 Hepatitis C Antibody >11.0 s/co ratio (0.0-0.9) H 03/22/17 07:00 lab noted Assessment: 03/24/17 10:12 withdrawal sx Plan: continue detox
[2017-03-24] MEDS ORDERED: cloNIDine HCL 0.1 MG TABLET PO ONE (10:21)
[2017-03-24] MEDS: QUEtiapine FUMARATE 100 MG TABLET (FP) PO SCH (11:43)
[2017-03-24] MEDS: PRENATAL VITAMINS W/ FOLIC ACID TABLET (FP) PO SCH (11:43)
--- NOTE | 2017-03-24 13:25 | PN ---
Psychiatric Progress Note Vital Signs: Vital Signs Period Temp Pulse Resp BP Sys/Aragno Pulse Ox Last 24 Hr 97.4 F-98.2 F 67-115 18-20 145-161/86-104 Date of Session: 03/24/17 Chief Complaint:: Gitation, irritability, anxiety HPI: As per nursing report patient has neen irritable, intrussive,ansious and asking psychietric evaluation. Chart revewed, patient evaluated at bedside, reports needs guillermo Seroquel, reports allergy to Haldol and Prolixin. Denioes suicidal and homicidal ideation Current Medications: Active Medications Generic Name Dose Route Start Last Admin Trade Name Freq PRN Reason Stop Dose Admin Acetaminophen 650 mg 03/22/17 21:59 Tylenol - PO Q4H PRN FEVER Al Hydroxide/Mg Hydroxide 30 ml 03/22/17 21:59 Mylanta Oral Suspension - PO Q6H PRN DYSPEPSIA Diazepam 10 mg 03/22/17 23:02 03/24/17 02:49 Valium - PO 03/25/17 23:01 10 mg Q4H PRN Administration WITHDRAWAL(CONT SUBST) Diazepam 5 mg 03/24/17 10:00 03/24/17 11:43 Valium - PO 03/25/17 22:01 5 mg BID SELENA Administration Diazepam 5 mg 03/26/17 10:00 Valium - PO 03/26/17 10:01 DAILY SELENA Diphenhydramine HCl 50 mg 03/23/17 22:00 03/23/17 22:36 Benadryl - PO 50 mg HS SELENA Administration Eucalyptus/Menthol/Phenol/Sorbitol 1 each 03/22/17 21:59 Cepastat Lozenge - MM Q4H PRN SORE THROAT Gabapentin 100 mg 03/23/17 14:00 03/24/17 08:09 Neurontin - PO Not Given TID SELENA Guaifenesin 10 ml 03/22/17 21:59 Robitussin Dm - PO Q6H PRN COUGH Ibuprofen 400 mg 03/22/17 21:59 Motrin - PO Q6H PRN PAIN LEVEL 4-6 Loperamide HCl 4 mg 03/22/17 21:59 Imodium - PO Q6H PRN DIARRHEA Magnesium Citrate 300 ml 03/22/17 21:59 Citroma - PO Q48H PRN CONSTIPATION Magnesium Hydroxide 30 ml 03/22/17 21:59 Milk Of Magnesia - PO DAILY PRN CONSTIPATION Multivit/Folic Acid/Iron 1 tab 03/23/17 10:00 03/24/17 11:43 Vitamins (Sjr) - PO 1 tab DAILY SELENA Administration Pseudoephedrine/Triprolidine 1 combo 03/22/17 21:59 Actifed - PO TID PRN NASAL CONGESTION Quetiapine Fumarate 100 mg 03/23/17 10:00 03/24/17 11:43 Seroquel - PO 100 mg BID SELENA Administration Thiamine HCl 100 mg 03/22/17 22:00 03/23/17 22:35 Vitamin B1 - PO 100 mg HS SELENA Administration Medication(s) Change(s): Seroquel 200mg po bid Mental Status Exam - Mental Status Exam Alert and Oriented to: Person Cognitive Function: Fair Patient Appearance: Unkempt Mood: Sad Affect: Mood Congruent, Flat Patient Behavior: Passive, Cooperative Speech Pattern: Delayed Voice Loudness: Moderately Soft/Quiet Thought Process: Goal Oriented Thought Disorder: Being Controlled Hallucinations: Denies Suicidal Ideation: Denies Homicidal Ideation: Denies Insight/Judgement: Fair Sleep: Difficulty falling asleep Appetite: Fair Muscle strength/Tone: Mild Hypotonicity Gait/Station: Shuffling Additional Comments: Seroquel 200mg po bid Psychiatric Treatment Plan - Problem List (1) Alcohol dependence with uncomplicated withdrawal Current Visit: Yes (2) Cocaine dependence, uncomplicated Current Visit: Yes (3) Nicotine dependence Current Visit: Yes Qualifiers: Nicotine product type: cigarettes Substance use status: uncomplicated Qualified Code(s): F17.210 - Nicotine dependence, cigarettes, uncomplicated (4) Sedative, hypnotic or anxiolytic dependence with withdrawal, uncomplicated Current Visit: Yes (5) Heroin dependence Current Visit: No (6) Substance induced mood disorder Current Visit: No (7) Opiate dependence Current Visit: No (8) Paranoid schizophrenia Current Visit: Yes Initial treatment plan: Seroquel 200mg po bid
[2017-03-24 13:42] VITALS: BP 142/86; PULSE 91; TEMP 98.4
--- NOTE | 2017-03-24 15:52 | PN ---
S Progress Note (SOAP) Subjective: I HAVE PSYCHOTIC THOUGHT Objective: 03/24/17 15:47 PATIENT DISCUSSED PSYCHOTIC THOUGHT WITH THE PSYCHIATRIST X 2 PATIENT BECAME INCOHERENT, INTERNAL PREOCCUPIED, ANXIOUSNESS, PARANOIA, CALL THE NURSES "AGENT" Assessment: 03/24/17 15:50 PSYCHOSIS Plan: AMBULANCE HAS BEEN CALLED PSYCHIATRIST INFORMED 1:1 OBSERVATION PSYCHIATRIC ER EVALUATION
--- NOTE | 2017-03-24 16:16 | PN ---
Psychiatric Progress Note Vital Signs: Vital Signs Period Temp Pulse Resp BP Sys/Arango Pulse Ox Last 24 Hr 97.4 F-98.4 F 67-115 18-20 142-161/86-104 Date of Session: 03/24/17 Chief Complaint:: violent behavior HPI: As per nursing report patient is not cooperative, not following directions , irritable, loud, uninterraptive, with high rate of speech, demending psychiatric evaluation, is not appropriate for psychiatric evaluation and even for special 1:1 observation due to his violent behavior. Patient sent to [facility] for safety and management. Current Medications: Active Medications Generic Name Dose Route Start Last Admin Trade Name Freq PRN Reason Stop Dose Admin Acetaminophen 650 mg 03/22/17 21:59 Tylenol - PO Q4H PRN FEVER Al Hydroxide/Mg Hydroxide 30 ml 03/22/17 21:59 Mylanta Oral Suspension - PO Q6H PRN DYSPEPSIA Diazepam 10 mg 03/22/17 23:02 03/24/17 02:49 Valium - PO 03/25/17 23:01 10 mg Q4H PRN Administration WITHDRAWAL(CONT SUBST) Diazepam 5 mg 03/24/17 10:00 03/24/17 11:43 Valium - PO 03/25/17 22:01 5 mg BID SELENA Administration Diazepam 5 mg 03/26/17 10:00 Valium - PO 03/26/17 10:01 DAILY SELENA Diphenhydramine HCl 50 mg 03/23/17 22:00 03/23/17 22:36 Benadryl - PO 50 mg HS SELENA Administration Eucalyptus/Menthol/Phenol/Sorbitol 1 each 03/22/17 21:59 Cepastat Lozenge - MM Q4H PRN SORE THROAT Gabapentin 100 mg 03/23/17 14:00 03/24/17 14:05 Neurontin - PO 100 mg TID SELENA Administration Guaifenesin 10 ml 03/22/17 21:59 Robitussin Dm - PO Q6H PRN COUGH Ibuprofen 400 mg 03/22/17 21:59 Motrin - PO Q6H PRN PAIN LEVEL 4-6 Loperamide HCl 4 mg 03/22/17 21:59 Imodium - PO Q6H PRN DIARRHEA Magnesium Citrate 300 ml 03/22/17 21:59 Citroma - PO Q48H PRN CONSTIPATION Magnesium Hydroxide 30 ml 03/22/17 21:59 Milk Of Magnesia - PO DAILY PRN CONSTIPATION Multivit/Folic Acid/Iron 1 tab 03/23/17 10:00 03/24/17 11:43 Vitamins (Sjr) - PO 1 tab DAILY SELENA Administration Pseudoephedrine/Triprolidine 1 combo 03/22/17 21:59 Actifed - PO TID PRN NASAL CONGESTION Quetiapine Fumarate 200 mg 03/24/17 22:00 Seroquel - PO BID SELENA Thiamine HCl 100 mg 03/22/17 22:00 03/23/17 22:35 Vitamin B1 - PO 100 mg HS SELENA Administration Medication(s) Change(s): n/a Mental Status Exam - Mental Status Exam Alert and Oriented to: Person Cognitive Function: Impaired Patient Appearance: Unkempt Mood: Hostile, Anxious, Irritable Affect: Constricted, Labile Patient Behavior: Uncooperative Speech Pattern: Excessive, Pressured Voice Loudness: Severely Loud Thought Process: Circumstantial Thought Disorder: Grandiose Hallucinations: Denies Suicidal Ideation: Denies Homicidal Ideation: Denies, Past Insight/Judgement: Impaired Sleep: Fair Appetite: Fair Muscle strength/Tone: Normal Gait/Station: Normal Additional Comments: same Psychiatric Treatment Plan - Problem List (1) Alcohol dependence with uncomplicated withdrawal Current Visit: Yes (2) Cocaine dependence, uncomplicated Current Visit: Yes (3) Nicotine dependence Current Visit: Yes Qualifiers: Nicotine product type: cigarettes Substance use status: uncomplicated Qualified Code(s): F17.210 - Nicotine dependence, cigarettes, uncomplicated (4) Sedative, hypnotic or anxiolytic dependence with withdrawal, uncomplicated Current Visit: Yes (5) Heroin dependence Current Visit: No (6) Substance induced mood disorder Current Visit: No (7) Opiate dependence Current Visit: No (8) Paranoid schizophrenia Current Visit: Yes Initial treatment plan: sent to [facility] due to violent behavior.
[2017-03-24] MEDS ORDERED: QUEtiapine FUMARATE 200 MG TABLET PO SCH (22:00)
[2017-03-26] MEDS ORDERED: diazePAM 5 MG TABLET PO SCH ×3 (10:00)
== END 2017-03-24 23:23 | DRG 774 ==
LOC: YASAS 13:08 → Y6N 18:50
PROVIDERS: ADMIT Internal Medicine; ATTEND Internal Medicine
PROC: HZ2ZZZZ Detoxification Services for Substance Abuse Treatment (ICD-10-PCS; principal; 2017-03-22)
DX: F10.230 Alcohol dependence with withdrawal, uncomplicated (principal); F13.230 Sedative, hypnotic or anxiolytic dependence with withdrawal, uncomplicated; F14.20 Cocaine dependence, uncomplicated; F17.210 Nicotine dependence, cigarettes, uncomplicated; F19.24 Other psychoactive substance dependence with psychoactive substance-induced mood disorder; F20.0 Paranoid schizophrenia; F32.9 Major depressive disorder, single episode, unspecified; F29 Unspecified psychosis not due to a substance or known physiological condition; G62.9 Polyneuropathy, unspecified; I10 Essential (primary) hypertension; Z88.8 Allergy status to other drugs, medicaments and biological substances
CPT/HCPCS: 36415; 80053; 81003; 81015; 85027; 86593; 86803; 87522; 93005; 93010; J0735

== ENCOUNTER 2018-04-23 19:11 | Inpatient (IN) | payer OTHER ==
--- NOTE | 2018-04-23 20:02 | HP ---
CIWA Score Nausea/Vomitin Muscle Tremors: 2 Anxiety: 2 Agitation: 2 Paroxysmal Sweats: 2 Orientation: 0-Oriented Tacttile Disturbances: 2-Mild Itch/Numbness/Burn Auditory Disturbances: 2-Mild Harshness/Frighten Visual Disturbances: 2-Mild Sensitivity Headache: 2-Mild CIWA-Ar Total Score: 18 - Admission Criteria [facility] Guidelines: Admission for Medically Managed Detox: Requires at least one of the followin. CIWA greater than 12 2. Seizures within the past 24 hours 3. Delirium tremens within the past 24 hours 4. Hallucinations within the past 24 hours 5. Acute intervention needed for co occurring medical disorder 6. Acute intervention needed for co occurring psychiatric disorder 7. Severe withdrawal that cannot be handled at a lower level of care (continued vomiting, continued diarrhea, abnormal vital signs) requiring intravenous medication and/or fluids 8. Admission ROS [facility] - HPI Chief Complaint: DEPENDENT ON ETOH, CRACK AND K2 Allergies/Adverse Reactions: Allergies Allergy/AdvReac Type Severity Reaction Status Date / Time fluphenazine [From Prolixin] Allergy Intermediate Swelling Verified 04/28/17 12: 10 haloperidol [From Haldol] Allergy Intermediate Swelling Verified 04/28/17 12:10 History of Present Illness: THE PT. WAS SENT FROM [facility] FOR ADMISSION TO THE DETOX UNIT HERE Exam Limitations: No Limitations - Ebola screening Have you traveled outside of the country in the last 21 days: No (N) Have you had contact with anyone from an Ebola affected area: No Have you been sick,other than usual withdrawal symptoms: No Do you have a fever: No - Review of Systems Constitutional: See HPI, Malaise, Weakness EENT: reports: See HPI Respiratory: reports: See HPI, Wheezing Cardiac: reports: See HPI GI: reports: See HPI, Nausea, Abdominal cramping : reports: No Symptoms Reported, See HPI Musculoskeletal: reports: See HPI, Muscle Pain, Muscle Weakness Integumentary: reports: See HPI, Sweating Neuro: reports: See HPI, Headache, Tremors, Weakness Endocrine: reports: See HPI Hematology: reports: See HPI Psychiatric: reports: Judgement Intact, Orientated x3, Anxious Other Systems: Reviewed and Negative Patient History - Patient Medical History Hx Anemia: No Hx Asthma: Yes Hx Chronic Obstructive Pulmonary Disease (COPD): No Hx Cancer: No Hx Cardiac Disorders: No Hx Congestive Heart Failure: No Hx Hypertension: Yes (NO MED) Hx Hypercholesterolemia: No Hx Pacemaker: No HX Cerebrovascular Accident: No Hx Seizures: No Hx Dementia: No Hx Diabetes: No Hx Gastrointestinal Disorders: No Hx Liver Disease: No Hx Genitourinary Disorders: No Hx Sexually Transmitted Disorders: No Hx Renal Disease (ESRD): No Hx Thyroid Disease: No Hx Human Immunodeficiency Virus (HIV): No (Negative LAST 02/2017) Hx Hepatitis C: No Hx Depression: No Hx Suicide Attempt: No Hx Bipolar Disorder: Yes Hx Schizophrenia: Yes - Patient Surgical History Past Surgical History: No Hx Neurologic Surgery: No Hx Cataract Extraction: No Hx Cardiac Surgery: No Hx Lung Surgery: No Hx Breast Surgery: No Hx Breast Biopsy: No Hx Abdominal Surgery: No Hx Appendectomy: No Hx Cholecystectomy: No Hx Genitourinary Surgery: No Hx Section: No Hx Orthopedic Surgery: No Anesthesia Reaction: No - Smoking Cessation Smoking history: Current every day smoker Have you smoked in the past 12 months: Yes Aproximately how many cigarettes per day: 10 Hx Chewing Tobacco Use: No Initiated information on smoking cessation: Yes 'Breaking Loose' booklet given: 04/23/18 - Substance & Tx. History Hx Alcohol Use: Yes Hx Substance Use: Yes Substance Use Type: Alcohol, Cocaine, Marijuana Hx Substance Use Treatment: Yes - Substances Abused Alcohol Route: Oral Frequency: Daily Amount used: liquor 10 shots/beer 3x24 ozs/d Age of first use: 17 Date of Last Use: 04/22/18 Crack Route: Smoking Frequency: 3-6 times per week Amount used: $500/EACH TIME Age of first use: 20 Date of Last Use: 04/22/18 Inhalant Route: Smoking Frequency: 3-6 times per week Amount used: K2 - $25/EACH TIME Age of first use: 32 Date of Last Use: 04/22/18 Family Disease History - Family Disease History Family Disease History: Other: Father (ADDICTED TO HEROIN AND ), Mother ( MOTHER WAS ADDICTED TO ETOH AND ) Admission Physical Exam [facility] - Physical General Appearance: Yes: No Apparent Distress, Nourished, Appropriately Dressed , Obese, Tremorous, Sweating, Anxious HEENTM: Yes: Hearing grossly Normal, Normocephalic, Normal Voice, GOMEZ, Pharynx Normal Respiratory: Yes: Chest Non-Tender, Lungs Clear, Normal Breath Sounds, No Respiratory Distress, No Accessory Muscle Use Neck: Yes: No masses,lesions,Nodules, Supple, Trachea in good position Breast: Yes: Axillae without masses, No masses Cardiology: Yes: Regular Rhythm, Regular Rate, S1, S2 Abdominal: Yes: Normal Bowel Sounds, Non Tender, Protuberent Musculoskeletal: Yes: full range of Motion, Gait Steady, Pelvis Stable, Muscle Pain, Muscle weakness Extremities: Yes: Normal Capillary Refill, Normal Range of Motion, Non-Tender, Tremors Neurological: Yes: 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 NML intact, Fully Oriented, Alert, Motor Strength 5/5, Normal Response, Depressed Affect Integumentary: Yes: Normal Color, Warm, Moist Lymphatic: Yes: Within Normal Limits - Addiitonal Findings: MILD SQUINT+ - Diagnostic (1) Cannabis dependence Current Visit: Yes Status: Chronic (2) Asthma Current Visit: Yes Status: Chronic (3) Obesity Current Visit: Yes Status: Chronic Qualifiers: Obesity type: unspecified obesity type Serious obesity comorbidity presence : without serious comorbidity Body mass index: unspecified BMI (4) Alcohol dependence with uncomplicated withdrawal Current Visit: No Status: Chronic (5) Nicotine dependence Current Visit: No Status: Chronic Qualifiers: Nicotine product type: cigarettes Substance use status: in withdrawal Qualified Code(s): F17.213 - Nicotine dependence, cigarettes, with withdrawal (6) Cocaine dependence, uncomplicated Current Visit: No Status: Chronic (7) HTN (hypertension) Current Visit: No Status: Chronic Qualifiers: Hypertension type: unspecified Qualified Code(s): I10 - Essential (primary ) hypertension (8) Schizophrenia Current Visit: No Status: Chronic Qualifiers: Schizophrenia type: unspecified Qualified Code(s): F20.9 - Schizophrenia, unspecified Comment: Reported by patient.No symptoms elicited at time of this examination.Currently on medications/ OPD care at [facility] health clinic. Cleared for Admission [facility] - Detox or Rehab [facility] Level of Care: Medically Supervised Detox Regimen/Protocol: Librium S Breath Alcohol Content Breath Alcohol Content: 0 Inpatient Rehab Admission - Rehab Decision to Admit Inpatient rehab admission?: No
[2018-04-23] MEDS ORDERED: LOPERAMIDE HCL 2 MG CAPSULE PO PRN (20:12)
[2018-04-23] MEDS ORDERED: IBUPROFEN 400 MG TABLET (FP) PO PRN (20:12)
[2018-04-23] MEDS ORDERED: chlordiazePOXIDE HCL 25 MG CAPSULE PO ONE (20:12)
[2018-04-23] MEDS ORDERED: hydrOXYzine PAMOATE 50 MG CAPSULE (FP) PO PRN (20:12)
[2018-04-23] MEDS ORDERED: MAGNESIUM HYDROX 2400MG/30ML ORAL SUSPENSION 30 ML CUP PO PRN (20:12)
[2018-04-23] MEDS ORDERED: MENTHOL/PHENOL 1 EACH UD MM PRN (20:12)
[2018-04-23] MEDS ORDERED: MAG HYDROX/AL HYDROX/SIMETH 30 ML UNIT-DOSE CUP PO PRN (20:12)
[2018-04-23] MEDS ORDERED: MAGNESIUM CITRATE 300 ML BOTTLE PO PRN (20:12)
[2018-04-23] MEDS ORDERED: NICOTINE POLACRILEX 2 MG GUM BC PRN (20:12)
[2018-04-23] MEDS ORDERED: P-EPHED 60MG/TRIPROLIDI 2.5MG TABLET PO PRN (20:12)
[2018-04-23] MEDS ORDERED: guaiFENesin/D-METHORPHAN HB 10 ML UNIT-DOSE CUPS PO PRN (20:12)
[2018-04-23] MEDS ORDERED: ACETAMINOPHEN 325 MG TABLET (FP) PO PRN (20:12)
[2018-04-23] MEDS ORDERED: chlordiazePOXIDE HCL 25 MG CAPSULE PO PRN (20:12)
[2018-04-23] MEDS ORDERED: ALBUTEROL SO4 2.5/IPRATROPIUM 0.5 INH SOL 3 ML VIAL.NEB. NEB PRN (20:14)
[2018-04-23 21:53] VITALS: BMI 34.8
[2018-04-23] MEDS ORDERED: THIAMINE HCL 100 MG TABLET (FP) PO SCH (22:00)
[2018-04-23] MEDS ORDERED: QUEtiapine FUMARATE 100 MG TABLET (FP) PO SCH (22:00)
[2018-04-23] MEDS ORDERED: MELATONIN 5 MG TABLETS PO PRN (22:00)
[2018-04-23] MEDS: chlordiazePOXIDE HCL 25 MG CAPSULE PO SCH (23:00)
[2018-04-24] MEDS: chlordiazePOXIDE HCL 25 MG CAPSULE PO SCH ×2 (06:25→11:11)
--- NOTE | 2018-04-24 09:50 | CONSULT ---
[facility] Psychiatric Consult - Data Date of interview: 04/24/18 Admission source: [facility] Identifying data: This is a 42 years old male, single, childless, homeless, unemployeed, with no financial support, with history of Bipolar Disorder nad Schizopfrenia, with no psychiatric hospitalization history, reports history of Alcohol, Crack, Nicotine dependence, as per computer Opioid depenence as well, is here reporting withdrawal symptoms and seeking detox. Substance Abuse History: Smoking history: Current every day smoker. Have you smoked in the past 12 months: Yes. Aproximately how many cigarettes per day: 10. Hx Chewing Tobacco Use: No. Initiated information on smoking cessation: Yes. 'Breaking Loose' booklet given: 04/23/18. - Substance & Tx. History. Hx Alcohol Use: Yes. Hx Substance Use: Yes. Substance Use Type: Alcohol, Cocaine , Marijuana. Hx Substance Use Treatment: Yes. - Substances Abused. Alcohol. Route: Oral. Frequency: Daily. Amount used: liquor 10 shots/beer 3x24 ozs/d. Age of first use: 17. Date of Last Use: 04/22/18. Crack. Route: Smoking. Frequency: 3-6 times per week. Amount used: $500/EACH TIME. Age of first use: 20. Date of Last Use: 04/22/18. Inhalant. Route: Smoking. Frequency: 3-6 times per week. Amount used: K2 - $25/EACH TIME. Age of first use: 32. Date of Last Use: 04/22/18 Medical History: HTN, Obesity, Asthma, Neuropathy, Psychiatric History: Patient reports history of Bipolar Disorder nad Schizophrenia, reports tryals with [place] and Depakote ijn the past, currently asking Seroquel 100mg po qhs. As per computer has been on Seroquel 100mg po bid. Denies psychiatric hospitalization history, suicidal, homicidal history. Physical/Sexual Abuse/Trauma History: Denies Additional Comment: Seroquel 100mg po qhs Mental Status Exam - Mental Status Exam Alert and Oriented to: Person Cognitive Function: Fair Patient Appearance: Unkempt Mood: Angry, Anxious Affect: Constricted Patient Behavior: Cooperative Speech Pattern: Pressured Voice Loudness: Mildly Loud Thought Process: Goal Oriented Thought Disorder: Being Controlled Hallucinations: Denies Suicidal Ideation: Denies Homicidal Ideation: Denies Insight/Judgement: Fair Sleep: Difficulty falling asleep Appetite: Weight gain Muscle strength/Tone: Normal Gait/Station: Normal Additional Comments: Seroquel 100mg po qhs Psychiatric Findings - Problem List ([place] 1, 2,3) (1) Asthma Current Visit: Yes Status: Chronic (2) Cannabis dependence Current Visit: Yes Status: Chronic (3) Obesity Current Visit: Yes Status: Chronic Qualifiers: Obesity type: unspecified obesity type Serious obesity comorbidity presence : without serious comorbidity Body mass index: unspecified BMI (4) Heroin dependence Current Visit: No Status: Acute (5) Paranoid schizophrenia Current Visit: No Status: Acute (6) Substance induced mood disorder Current Visit: No Status: Acute (7) Alcohol dependence with uncomplicated withdrawal Current Visit: No Status: Chronic (8) Cocaine dependence, uncomplicated Current Visit: No Status: Chronic (9) HTN (hypertension) Current Visit: No Status: Chronic Qualifiers: Hypertension type: unspecified Qualified Code(s): I10 - Essential (primary ) hypertension (10) Neuropathy Current Visit: No Status: Chronic (11) Opiate dependence Current Visit: No Status: Chronic (12) Schizophrenia Current Visit: No Status: Chronic Qualifiers: Schizophrenia type: unspecified Qualified Code(s): F20.9 - Schizophrenia, unspecified Comment: Reported by patient.No symptoms elicited at time of this examination.Currently on medications/ OPD care at [facility] mental health clinic. (13) Sedative, hypnotic or anxiolytic dependence with withdrawal, uncomplicated Current Visit: No Status: Chronic Comment: Seroquel 100mg po bid - Initial Treatment Plan Initial Treatment Plan: Seroquel 100mg po qhs
[2018-04-24] MEDS ORDERED: NICOTINE 14 MG/24 HOURS TOPICAL PATCH TD SCH (10:00)
[2018-04-24] MEDS ORDERED: PRENATAL VITAMINS W/ FOLIC ACID TABLET (FP) PO SCH (10:00)
[2018-04-24 10:06] LABS: HEMATOCRIT 38.3 % (35.4-49); HEMOGLOBIN 13.5 GM/dL (11.7-16.9); MCH 34.2 pg (25.7-33.7); MCHC 35.2 g/dl (32.0-35.9); MEAN CELL VOLUME 97.2 fl (80-96); MEAN PLT VOLUME 9.2 fl (7.5-11.1); PLATELET COUNT 144 K/MM3 (134-434); RBC 3.94 M/mm3 (4.00-5.60); WHITE BLOOD COUNT 6.4 K/mm3 (4.0-10.0)
[2018-04-24 10:36] LABS: ALBUMIN 3.5 g/dl (3.4-5.0); ALK PHOS 80 U/L (45-117); ANION GAP 8 MMOL/L (8-16); BILIRUBIN,TOTAL 0.4 mg/dL (0.2-1); BLOOD UREA NITROGEN 20 mg/dL (7-18); CALCIUM 8.2 mg/dL (8.5-10.1); CHLORIDE 106 mmol/L (98-107); CO2 27 mmol/L (21-32); CREATININE 1.2 mg/dL (0.55-1.3); GLUCOSE,RANDOM 95 mg/dL (74-106); POTASSIUM 3.5 mmol/L (3.5-5.1); SGOT/AST 87 U/L (15-37); SGPT/ALT 50 U/L (13-61); SODIUM 141 mmol/L (136-145); TOT PROT 6.3 g/dl (6.4-8.2)
[2018-04-24] MEDS: HYDROCHLOROTHIAZIDE 25 MG TABLET (FP) PO SCH ×2 (11:00→11:10)
--- NOTE | 2018-04-24 12:11 | PN ---
[facility] CIWA - CIWA Score Nausea/Vomitin-No Nausea/No Vomiting Muscle Tremors: 3 Anxiety: 3 Agitation: 5 Paroxysmal Sweats: 3 Orientation: 0-Oriented Tacttile Disturbances: 0-None Auditory Disturbances: 0-None Visual Disturbances: 0-None Headache: 0-None Present CIWA-Ar Total Score: 14 S Progress Note (SOAP) Subjective: Sweats Shakes Objective: 04/24/18 12:07 heard pt from hallway screaming "i want to see psych" When asked what the problem was, initially continue to scream without answering Later, after seeing psych MD, he c/o sweats, Sleep disturbance,Shakes Vital Signs Temperature 97.9 F 04/24/18 09:10 Pulse Rate 70 04/24/18 09:10 Respiratory Rate 18 04/24/18 09:10 Blood Pressure 122/76 04/24/18 09:10 O2 Sat by Pulse Oximetry (%) Laboratory Last Values WBC 6.4 K/mm3 (4.0-10.0) 04/24/18 07:40 RBC 3.94 M/mm3 (4.00-5.60) L 04/24/18 07:40 Hgb 13.5 GM/dL (11.7-16.9) 04/24/18 07:40 Hct 38.3 % (35.4-49) D 04/24/18 07:40 MCV 97.2 fl (80-96) H 04/24/18 07:40 MCH 34.2 pg (25.7-33.7) H 04/24/18 07:40 MCHC 35.2 g/dl (32.0-35.9) 04/24/18 07:40 RDW 14.0 % (11.9-15.9) 04/24/18 07:40 Plt Count 144 K/MM3 (134-434) D 04/24/18 07:40 MPV 9.2 fl (7.5-11.1) D 04/24/18 07:40 Sodium 141 mmol/L (136-145) 04/24/18 07:40 Potassium 3.5 mmol/L (3.5-5.1) 04/24/18 07:40 Chloride 106 mmol/L (98-107) 04/24/18 07:40 Carbon Dioxide 27 mmol/L (21-32) 04/24/18 07:40 Anion Gap 8 MMOL/L (8-16) 04/24/18 07:40 BUN 20 mg/dL (7-18) H 04/24/18 07:40 Creatinine 1.2 mg/dL (0.55-1.3) 04/24/18 07:40 Creat Clearance w eGFR > 60 (>60) 04/24/18 07:40 Random Glucose 95 mg/dL (74-106) 04/24/18 07:40 Calcium 8.2 mg/dL (8.5-10.1) L 04/24/18 07:40 Total Bilirubin 0.4 mg/dL (0.2-1) 04/24/18 07:40 AST 87 U/L (15-37) H 04/24/18 07:40 ALT 50 U/L (13-61) 04/24/18 07:40 Alkaline Phosphatase 80 U/L (45-117) 04/24/18 07:40 Total Protein 6.3 g/dl (6.4-8.2) L 04/24/18 07:40 Albumin 3.5 g/dl (3.4-5.0) 04/24/18 07:40 RPR Titer Nonreactive (NONREACTIVE) 04/24/18 07:40 noted labs High BUN Assessment: 04/24/18 12:11 withdrawal sx Agitation Plan: continue detox Increase po water hydration
--- NOTE | 2018-04-24 14:29 | PN ---
S Progress Note Note: T/C FROM DANIEL [facility] THAT PT LEFT CAME UP TO THE NURSING STATION REQUESTING TO LEAVE. PER REPORT, PT WAS LOUD, UNRULY, DISRUPTIVE AND INSISTENT ON LEAVING IMMEDIATELY. WAS NOT DIRECTABLE TO ADVISE TO COMPLETE DETOX NOR WAIT FOR PROVIDER EVAL, AND SUBSEQUENTLY LEFT THE UNIT AT 1321. PT LEFT THE UNIT AGAINST MEDICAL ADVICE AND WILL BE DISCHARGED ACCORDINGLY.
--- NOTE | 2018-04-24 14:31 | DS ---
S Detox Discharge Summary Admission Date: 04/23/18 Discharge Date: 04/24/18 - History Additional Comments: PLS SEE PROGRESS NOTED - Physical Exam Results Vital Signs: Vital Signs Temperature 97.9 F 04/24/18 09:10 Pulse Rate 70 04/24/18 09:10 Respiratory Rate 18 04/24/18 09:10 Blood Pressure 122/76 04/24/18 09:10 O2 Sat by Pulse Oximetry (%) - Medication Discharge Medications: Ambulatory Orders Quetiapine Fumarate [Seroquel -] 100 mg PO HS #30 tablet 04/24/18 - AMA Did Patient Leave Against Medical Advice: Yes
[2018-04-24 14:45] VITALS: BP 146/82; PULSE 78; TEMP 98.1
[2018-04-24] MEDS ORDERED: QUEtiapine FUMARATE 100 MG TABLET (FP) PO SCH (22:00)
[2018-04-24] MEDS ORDERED: chlordiazePOXIDE HCL 25 MG CAPSULE PO SCH (23:00)
[2018-04-25] MEDS ORDERED: chlordiazePOXIDE 5 MG CAPSULE PO SCH (23:00)
[2018-04-26] MEDS ORDERED: chlordiazePOXIDE HCL 10 MG CAPSULE PO SCH (23:00)
== END 2018-04-24 13:20 | disposition left against medical advice (07) | DRG 770 ==
LOC: YASAS 19:11 → Y6N 19:58
PROVIDERS: ADMIT Surgery; ATTEND Surgery
PROC: HZ2ZZZZ Detoxification Services for Substance Abuse Treatment (ICD-10-PCS; principal; 2018-04-23)
DX: F11.23 Opioid dependence with withdrawal (principal); F10.230 Alcohol dependence with withdrawal, uncomplicated; F13.230 Sedative, hypnotic or anxiolytic dependence with withdrawal, uncomplicated; F14.20 Cocaine dependence, uncomplicated; F12.20 Cannabis dependence, uncomplicated; F19.24 Other psychoactive substance dependence with psychoactive substance-induced mood disorder; F25.9 Schizoaffective disorder, unspecified; G62.9 Polyneuropathy, unspecified; I10 Essential (primary) hypertension; J45.909 Unspecified asthma, uncomplicated; E66.9 Obesity, unspecified; Z68.34 Body mass index [BMI] 34.0-34.9, adult; Z88.8 Allergy status to other drugs, medicaments and biological substances
CPT/HCPCS: 36415; 80053; 85027; 86593

== ENCOUNTER 2018-05-28 08:26 | Inpatient (IN) | payer OTHER ==
[2018-05-28 09:10] VITALS: BMI 33.5
--- NOTE | 2018-05-28 09:34 | HP ---
CIWA Score Nausea/Vomitin Muscle Tremors: 2 Anxiety: 2 Agitation: 2 Paroxysmal Sweats: 1-Minimal Palms Moist Orientation: 0-Oriented Tacttile Disturbances: 1-Very Mild Itch/Numbness Auditory Disturbances: 1-Very Mild Visual Disturbances: 0-None Headache: 2-Mild CIWA-Ar Total Score: 13 - Admission Criteria OASAS Guidelines: Admission for Medically Managed Detox: Requires at least one of the followin. CIWA greater than 12 2. Seizures within the past 24 hours 3. Delirium tremens within the past 24 hours 4. Hallucinations within the past 24 hours 5. Acute intervention needed for co occurring medical disorder 6. Acute intervention needed for co occurring psychiatric disorder 7. Severe withdrawal that cannot be handled at a lower level of care (continued vomiting, continued diarrhea, abnormal vital signs) requiring intravenous medication and/or fluids 8. Admission ROS S - HPI Chief Complaint: i need help to stop drinking alcohol,xanax,and cocaine Allergies/Adverse Reactions: Allergies Allergy/AdvReac Type Severity Reaction Status Date / Time fluphenazine [From Prolixin] Allergy Intermediate Swelling Verified 05/28/18 09: 48 haloperidol [From Haldol] Allergy Intermediate Swelling Verified 05/28/18 09:48 History of Present Illness: this 42 years old with alcohol,cocaine and xanax dependence,seeking detox, withdrawal symptom, last seen at [facility] last night,refer for detox multiple admissions in the past but non comlpiance last detox [facility] 04/23/18 to 04/24/18 ,not completed hypertension on hydrochlorothizide 25 mgs po daily paranoid schizophrenia on only seroquel 100 mgs hs no significant period of sobriety plan for rehab after detox Exam Limitations: No Limitations - Ebola screening Have you traveled outside of the country in the last 21 days: No Have you been sick,other than usual withdrawal symptoms: No - Review of Systems Constitutional: Malaise, Night Sweats, Weakness EENT: reports: Nose Congestion Respiratory: reports: No Symptoms reported Cardiac: reports: No Symptoms Reported GI: reports: Nausea, Vomiting, Abdominal cramping : reports: No Symptoms Reported Musculoskeletal: reports: Back Pain, Muscle Pain Integumentary: reports: Dryness Neuro: reports: Headache, Tremors Endocrine: reports: No Symptoms Reported Hematology: reports: No Symptoms Reported Psychiatric: reports: No Sypmtoms Reported, Judgement Intact, Mood/Affect Appropiate, Orientated x3, other (paranoid schizophrenia) Other Systems: Reviewed and Negative Patient History - Patient Medical History Hx Anemia: No Hx Asthma: Yes (no med) Hx Chronic Obstructive Pulmonary Disease (COPD): No Hx Cancer: No Hx Cardiac Disorders: No Hx Congestive Heart Failure: No Hx Hypertension: Yes (on hydrochlorothizide 25 mgs po daily) Hx Hypercholesterolemia: No Hx Pacemaker: No HX Cerebrovascular Accident: No Hx Seizures: No Hx Dementia: No Hx Diabetes: No Hx Gastrointestinal Disorders: No Hx Liver Disease: No Hx Genitourinary Disorders: No Hx Sexually Transmitted Disorders: No Hx Renal Disease (ESRD): No Hx Thyroid Disease: No Hx Human Immunodeficiency Virus (HIV): No (Negative LAST 02/2017) Hx Hepatitis C: No Hx Depression: No Hx Suicide Attempt: No Hx Bipolar Disorder: Yes Hx Schizophrenia: Yes (paranoid schizophrenia ) Other Medical History: no suicidal,no homicidal - Patient Surgical History Past Surgical History: No Hx Neurologic Surgery: No Hx Cataract Extraction: No Hx Cardiac Surgery: No Hx Lung Surgery: No Hx Breast Surgery: No Hx Breast Biopsy: No Hx Abdominal Surgery: No Hx Appendectomy: No Hx Cholecystectomy: No Hx Genitourinary Surgery: No Hx Section: No Hx Orthopedic Surgery: No Anesthesia Reaction: No - PPD History Previous Implant?: Yes Documented Results: Negative w/o proof Implanted On Prior [facility] Admission?: No PPD to be Administered?: Yes - Smoking Cessation Smoking history: Current every day smoker Have you smoked in the past 12 months: Yes Aproximately how many cigarettes per day: 10 Hx Chewing Tobacco Use: No Initiated information on smoking cessation: Yes 'Breaking Loose' booklet given: 05/28/18 - Substance & Tx. History Hx Alcohol Use: Yes Hx Substance Use: Yes Substance Use Type: Alcohol, Cocaine, Tranquilizers Hx Substance Use Treatment: Yes ([facility] 04/23/18 to 04/24/18 not complete) - Substances Abused Alcohol Route: Oral Frequency: Daily Amount used: 1pint of vodka/3 of 24 ozs of beer Age of first use: 18 Date of Last Use: 05/27/18 Alprazolam (Xanax) Route: Oral Frequency: Daily Amount used: 4 mgs Age of first use: 28 Date of Last Use: 05/19/18 Cocaine Route: Smoking Frequency: Daily Amount used: 50$ Age of first use: 20 Date of Last Use: 05/27/18 Family Disease History - Family Disease History Family Disease History: Other: Father (ADDICTED TO HEROIN AND ), Mother ( MOTHER WAS ADDICTED TO ETOH AND ) Admission Physical Exam [facility] - Vital Signs Vital Signs: Vital Signs - 24 hr 05/28/18 09:07 Temperature 98.6 F Pulse Rate 80 Respiratory 18 Rate Blood Pressure 149/102 H - Physical General Appearance: Yes: Moderate Distress, Tremorous, Irritable, Sweating, Anxious HEENTM: Yes: Normal ENT Inspection, GOMEZ, Pharynx Normal Respiratory: Yes: Lungs Clear, Normal Breath Sounds, No Respiratory Distress Neck: Yes: Within Normal Limits, Supple, Trachea in good position Breast: Yes: Within Normal Limits Cardiology: Yes: Within Normal Limits, Regular Rhythm, Regular Rate, S1, S2 Abdominal: Yes: Within Normal Limits, Normal Bowel Sounds, Non Tender, Flat, Soft Genitourinary: Yes: Within Normal Limits Back: Yes: Muscle Spasm Musculoskeletal: Yes: Back pain, Muscle Pain Extremities: Yes: Tremors Neurological: Yes: health and safety coordinator II-XII NML intact, Fully Oriented, Alert, Motor Strength 5/5 Integumentary: Yes: Dry Lymphatic: Yes: Within Normal Limits - Diagnostic (1) Alcohol dependence with uncomplicated withdrawal Current Visit: No Status: Chronic (2) Paranoid schizophrenia Current Visit: No Status: Acute (3) Asthma Current Visit: No Status: Chronic (4) Cocaine dependence, uncomplicated Current Visit: No Status: Chronic (5) HTN (hypertension) Current Visit: No Status: Chronic Qualifiers: Hypertension type: unspecified Qualified Code(s): I10 - Essential (primary ) hypertension (6) Nicotine dependence Current Visit: No Status: Chronic Qualifiers: Nicotine product type: cigarettes Substance use status: in withdrawal Qualified Code(s): F17.213 - Nicotine dependence, cigarettes, with withdrawal (7) Obesity Current Visit: No Status: Chronic Qualifiers: Obesity type: unspecified obesity type Serious obesity comorbidity presence : without serious comorbidity Body mass index: unspecified BMI (8) Sedative, hypnotic or anxiolytic dependence with withdrawal, uncomplicated Current Visit: No Status: Chronic Comment: Seroquel 100mg po bid Cleared for Admission [facility] - Detox or Rehab [facility] Level of Care: Medically Managed Detox Regimen/Protocol: Librium [facility] Breath Alcohol Content Breath Alcohol Content: 0 Urine Drug Screen - Results Urine Drug Screen Results: LENA-Cocaine, BZO-Benzodiazepines Drug Screen Negative: No Inpatient Rehab Admission - Rehab Decision to Admit Inpatient rehab admission?: No
[2018-05-28] MEDS ORDERED: IBUPROFEN 400 MG TABLET (FP) PO PRN (09:45)
[2018-05-28] MEDS ORDERED: MAGNESIUM HYDROX 2400MG/30ML ORAL SUSPENSION 30 ML CUP PO PRN (09:45)
[2018-05-28] MEDS ORDERED: MENTHOL/PHENOL 1 EACH UD MM PRN (09:45)
[2018-05-28] MEDS ORDERED: MAGNESIUM CITRATE 300 ML BOTTLE PO PRN (09:45)
[2018-05-28] MEDS ORDERED: chlordiazePOXIDE HCL 25 MG CAPSULE PO PRN (09:45)
[2018-05-28] MEDS ORDERED: MAG HYDROX/AL HYDROX/SIMETH 30 ML UNIT-DOSE CUP PO PRN (09:45)
[2018-05-28] MEDS ORDERED: BISMUTH SUBSALICYLATE 524 MG/30 ML UD PO PRN (09:45)
[2018-05-28] MEDS ORDERED: MELATONIN 5 MG TABLETS PO PRN (09:45)
[2018-05-28] MEDS ORDERED: ACETAMINOPHEN 325 MG TABLET (FP) PO PRN ×2 (09:45)
[2018-05-28] MEDS ORDERED: hydrOXYzine PAMOATE 25 MG CAPSULE (FP) PO PRN (09:45)
[2018-05-28] MEDS ORDERED: P-EPHED 60MG/TRIPROLIDI 2.5MG TABLET PO PRN (09:45)
[2018-05-28] MEDS ORDERED: METHOCARBAMOL 500 MG TABLET PO PRN (09:45)
[2018-05-28] MEDS ORDERED: QUEtiapine FUMARATE 100 MG TABLET (FP) PO PRN (09:45)
[2018-05-28] MEDS: chlordiazePOXIDE HCL 25 MG CAPSULE PO SCH ×3 (11:54→22:45)
[2018-05-28] MEDS: PRENATAL VITAMINS W/ FOLIC ACID TABLET (FP) PO SCH (11:55)
[2018-05-28] MEDS ORDERED: NICOTINE POLACRILEX 2 MG GUM BUC PRN (18:23)
[2018-05-28] MEDS ORDERED: THIAMINE HCL 100 MG TABLET (FP) PO SCH (22:00)
[2018-05-28] MEDS ORDERED: QUEtiapine FUMARATE 50 MG TABLET PO SCH (22:00)
[2018-05-29 06:16] VITALS: BP 135/84; PULSE 70; TEMP 97.3
[2018-05-29] MEDS: chlordiazePOXIDE HCL 25 MG CAPSULE PO SCH (06:46)
[2018-05-29] MEDS ORDERED: HYDROCHLOROTHIAZIDE 25 MG TABLET (FP) PO SCH (10:00)
[2018-05-29 10:07] LABS: HEMATOCRIT 42.6 % (35.4-49); HEMOGLOBIN 14.2 GM/dL (11.7-16.9); MCH 31.5 pg (25.7-33.7); MCHC 33.2 g/dl (32.0-35.9); MEAN PLT VOLUME 8.3 fl (7.5-11.1); PLATELET COUNT 193 K/MM3 (134-434); RBC 4.49 M/mm3 (4.00-5.60); RDW 13.6 % (11.9-15.9)
[2018-05-29 10:18] LABS: ALBUMIN 3.6 g/dl (3.4-5.0); ALK PHOS 73 U/L (45-117); ANION GAP 4 MMOL/L (8-16); BILIRUBIN,TOTAL 0.3 mg/dL (0.2-1); BLOOD UREA NITROGEN 11 mg/dL (7-18); CALCIUM 8.6 mg/dL (8.5-10.1); CHLORIDE 105 mmol/L (98-107); CO2 29 mmol/L (21-32); CREATININE 0.9 mg/dL (0.55-1.3); GLUCOSE,RANDOM 92 mg/dL (74-106); POTASSIUM 3.9 mmol/L (3.5-5.1); SGOT/AST 23 U/L (15-37); SGPT/ALT 28 U/L (13-61); SODIUM 138 mmol/L (136-145); TOT PROT 6.7 g/dl (6.4-8.2)
[2018-05-29] MEDS: PRENATAL VITAMINS W/ FOLIC ACID TABLET (FP) PO SCH (10:31)
[2018-05-29] MEDS ORDERED: chlordiazePOXIDE HCL 25 MG CAPSULE PO SCH (11:00)
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
[2018-05-30] MEDS ORDERED: chlordiazePOXIDE HCL 10 MG CAPSULE PO SCH (11:00)
[2018-05-30] MEDS ORDERED: chlordiazePOXIDE HCL 10 MG CAPSULE PO PRN (11:00)
[2018-05-31] MEDS ORDERED: chlordiazePOXIDE HCL 10 MG CAPSULE PO SCH (11:00)
== END 2018-05-29 08:40 | disposition home or self-care (01) | DRG 774 ==
LOC: YASAS 08:26 → Y3N 09:57
PROVIDERS: ADMIT Surgery; ATTEND Surgery
PROC: HZ2ZZZZ Detoxification Services for Substance Abuse Treatment (ICD-10-PCS; principal; 2018-05-28)
DX: F10.230 Alcohol dependence with withdrawal, uncomplicated (principal); F13.230 Sedative, hypnotic or anxiolytic dependence with withdrawal, uncomplicated; F14.20 Cocaine dependence, uncomplicated; F17.213 Nicotine dependence, cigarettes, with withdrawal; F20.0 Paranoid schizophrenia; F31.9 Bipolar disorder, unspecified; I10 Essential (primary) hypertension; J45.909 Unspecified asthma, uncomplicated; E66.9 Obesity, unspecified; Z68.33 Body mass index [BMI] 33.0-33.9, adult; Z88.8 Allergy status to other drugs, medicaments and biological substances
CPT/HCPCS: 36415; 80053; 85027; 86593; 87389

== ENCOUNTER 2018-06-28 09:24 | Inpatient (IN) | payer OTHER ==
[2018-06-28 10:01] VITALS: BMI 33.0
--- NOTE | 2018-06-28 11:32 | HP ---
CIWA Score Nausea/Vomitin Muscle Tremors: 2 Anxiety: 3 Paroxysmal Sweats: 1-Minimal Palms Moist Orientation: 0-Oriented Tacttile Disturbances: 1-Very Mild Itch/Numbness Auditory Disturbances: 1-Very Mild Visual Disturbances: 0-None Headache: 2-Mild - Admission Criteria OASAS Guidelines: Admission for Medically Managed Detox: Requires at least one of the followin. CIWA greater than 12 2. Seizures within the past 24 hours 3. Delirium tremens within the past 24 hours 4. Hallucinations within the past 24 hours 5. Acute intervention needed for co occurring medical disorder 6. Acute intervention needed for co occurring psychiatric disorder 7. Severe withdrawal that cannot be handled at a lower level of care (continued vomiting, continued diarrhea, abnormal vital signs) requiring intravenous medication and/or fluids 8. Admission ROS S - HPI Chief Complaint: i need help to stop drinking alcohol,cocaine and xanax Allergies/Adverse Reactions: Allergies Allergy/AdvReac Type Severity Reaction Status Date / Time fluphenazine [From Prolixin] Allergy Intermediate Swelling Verified 06/28/18 09: 52 haloperidol [From Haldol] Allergy Intermediate Swelling Verified 06/28/18 09:52 History of Present Illness: this 42years old male with alcohol,xanax and cocaine dependence,seeking detox, withdrawal symptom, syncope alcohol related history of multiple admissions in detox,non compliances,but promise to change his behavior and compliance with rule,regulation and taking medication for detox syncope alcohol related withdrawal symptom keep relapsing no significant period of sobriety plan to go to rehab after detox history of paranoid schizophrenia Exam Limitations: No Limitations - Ebola screening Have you traveled outside of the country in the last 21 days: No Have you had contact with anyone from an Ebola affected area: No Do you have a fever: No - Review of Systems Constitutional: Loss of Appetite, Malaise, Night Sweats, Changes in sleep, Weakness EENT: reports: Nose Congestion Respiratory: reports: No Symptoms reported Cardiac: reports: No Symptoms Reported, Palpitations GI: reports: Nausea, Poor Appetite, Abdominal cramping : reports: No Symptoms Reported Musculoskeletal: reports: Back Pain, Muscle Pain Integumentary: reports: Dryness Neuro: reports: Headache, Tremors Endocrine: reports: No Symptoms Reported Hematology: reports: No Symptoms Reported Psychiatric: reports: No Sypmtoms Reported, Judgement Intact, Mood/Affect Appropiate, Orientated x3, other (paranoid schizophrenia) Patient History - Patient Medical History Hx Anemia: No Hx Asthma: Yes (on albuterol inhaler) Hx Chronic Obstructive Pulmonary Disease (COPD): No Hx Cancer: No Hx Cardiac Disorders: No Hx Congestive Heart Failure: No Hx Hypertension: Yes (on hydrochlorothizide 25 mgs po daily) Hx Hypercholesterolemia: No Hx Pacemaker: No HX Cerebrovascular Accident: No Hx Seizures: No Hx Dementia: No Hx Diabetes: No Hx Gastrointestinal Disorders: No Hx Liver Disease: No Hx Genitourinary Disorders: No Hx Sexually Transmitted Disorders: No Hx Renal Disease (ESRD): No Hx Thyroid Disease: No Hx Human Immunodeficiency Virus (HIV): No (03/18 last negative) Hx Hepatitis C: No Hx Depression: No Hx Suicide Attempt: No Hx Bipolar Disorder: Yes Hx Schizophrenia: Yes (paranoid schizophrenia ) Other Medical History: no suicidal,no homicidal - Patient Surgical History Past Surgical History: No Hx Neurologic Surgery: No Hx Cataract Extraction: No Hx Cardiac Surgery: No Hx Lung Surgery: No Hx Breast Surgery: No Hx Breast Biopsy: No Hx Abdominal Surgery: No Hx Appendectomy: No Hx Cholecystectomy: No Hx Genitourinary Surgery: No Hx Section: No Hx Orthopedic Surgery: No Anesthesia Reaction: No - PPD History Previous Implant?: Yes Documented Results: Negative w/o proof Implanted On Prior R Admission?: Yes Date: 05/30/18 Results: no reading PPD to be Administered?: Yes - Smoking Cessation Smoking history: Current every day smoker Have you smoked in the past 12 months: Yes Aproximately how many cigarettes per day: 10 Hx Chewing Tobacco Use: No Initiated information on smoking cessation: Yes 'Breaking Loose' booklet given: 06/28/18 - Substance & Tx. History Hx Alcohol Use: Yes Hx Substance Use: Yes Substance Use Type: Alcohol, Tranquilizers Hx Substance Use Treatment: Yes ([facility] 05/29/18 not completed) - Substances abused Alcohol Substance route: Oral Frequency: Daily Amount used: 1 PINT OF VODKA, 2-3 CANS OF BEER (24 OUNCES) Age of first use: 16 Date of last use: 06/27/18 Alprazolam (Xanax) Substance route: Oral Frequency: 3-6 times per week Amount used: ONE 1 MG TABLET Age of first use: 31 Date of last use: 06/26/18 Cocaine Substance route: Smoking Frequency: Daily Amount used: 80$ Age of first use: 16 Date of last use: 06/27/18 Family Disease History - Family Disease History Family Disease History: Other: Father (ADDICTED TO HEROIN AND ), Mother ( MOTHER WAS ADDICTED TO ETOH AND ) Admission Physical Exam [facility] - Vital Signs Vital Signs: Vital Signs - 24 hr 06/28/18 06/28/18 06/28/18 09:58 10:06 10:47 Temperature 97.4 F L 97.4 F L 97.4 F L Pulse Rate 73 73 73 Respiratory 18 18 18 Rate Blood Pressure 109/70 109/70 109/70 - Physical General Appearance: Yes: Moderate Distress, Tremorous, Irritable, Sweating, Anxious HEENTM: Yes: GOMEZ, Pharynx Normal Respiratory: Yes: Lungs Clear, Normal Breath Sounds, No Respiratory Distress Neck: Yes: Within Normal Limits, Supple, Trachea in good position Breast: Yes: Within Normal Limits Cardiology: Yes: Within Normal Limits, Regular Rhythm, Regular Rate, S1, S2 Abdominal: Yes: Within Normal Limits, Normal Bowel Sounds, Non Tender, Flat, Soft Genitourinary: Yes: Within Normal Limits Back: Yes: Normal Inspection, Muscle Spasm Extremities: Yes: Within Normal Limits, Normal Range of Motion, Tremors Neurological: Yes: exploration geologist II-XII NML intact, Fully Oriented, Alert, Motor Strength 5/5 Integumentary: Yes: Dry Lymphatic: Yes: Within Normal Limits - Diagnostic (1) Alcohol dependence with uncomplicated withdrawal Current Visit: Yes Status: Acute (2) Sedative, hypnotic or anxiolytic dependence with withdrawal, uncomplicated Current Visit: Yes Status: Acute (3) Asthma Current Visit: No Status: Chronic Qualifiers: Asthma severity: unspecified severity Asthma persistence: unspecified Asthma complication type: uncomplicated Qualified Code(s): J45.909 - Unspecified asthma, uncomplicated (4) Cocaine dependence, uncomplicated Current Visit: Yes Status: Chronic (5) Obesity Current Visit: No Status: Chronic Qualifiers: Obesity type: unspecified obesity type Obesity classification: adult class 1 (BMI 30 - 34.9) Serious obesity comorbidity presence: without serious comorbidity Body mass index: BMI 33.0-33.9 Qualified Code(s): E66.9 - Obesity, unspecified; Z68.33 - Body mass index (BMI) 33.0-33.9, adult (6) Paranoid schizophrenia Current Visit: No Status: Chronic Cleared for Admission [facility] - Detox or Rehab [facility] Level of Care: Medically Managed Detox Regimen/Protocol: Librium Breathalyzer - Breathalyzer Breathalyzer: 0 Urine Drug Screen - Test Device Lot number: [id number] Expiration date: 01/28/20 - Control Is test valid?: Yes - Results Drug screen NEGATIVE: No Urine drug screen results: LENA-Cocaine, BZO-Benzodiazepines Inpatient Rehab Admission - Rehab Decision to Admit Inpatient rehab admission?: No
[2018-06-28] MEDS ORDERED: MAGNESIUM HYDROX 2400MG/30ML ORAL SUSPENSION 30 ML CUP PO PRN (11:41)
[2018-06-28] MEDS ORDERED: MELATONIN 5 MG TABLETS PO PRN (11:41)
[2018-06-28] MEDS ORDERED: ACETAMINOPHEN 325 MG TABLET (FP) PO PRN ×2 (11:41)
[2018-06-28] MEDS ORDERED: MAGNESIUM CITRATE 300 ML BOTTLE PO PRN (11:41)
[2018-06-28] MEDS ORDERED: MAG HYDROX/AL HYDROX/SIMETH 30 ML UNIT-DOSE CUP PO PRN (11:41)
[2018-06-28] MEDS ORDERED: chlordiazePOXIDE HCL 25 MG CAPSULE PO PRN (11:41)
[2018-06-28] MEDS ORDERED: IBUPROFEN 400 MG TABLET (FP) PO PRN (11:41)
[2018-06-28] MEDS ORDERED: METHOCARBAMOL 500 MG TABLET PO PRN (11:41)
[2018-06-28] MEDS ORDERED: MENTHOL/PHENOL 1 EACH UD MM PRN (11:41)
[2018-06-28] MEDS ORDERED: hydrOXYzine PAMOATE 25 MG CAPSULE (FP) PO PRN (11:41)
[2018-06-28] MEDS ORDERED: BISMUTH SUBSALICYLATE 524 MG/30 ML UD PO PRN (11:41)
[2018-06-28] MEDS ORDERED: ONDANSETRON *ODT* 4 MG TABLET SL ONE ×2 (12:33→22:50)
--- NOTE | 2018-06-28 12:38 | PN ---
[facility] Progress Note Note: vomited x 1 zofran sl 8 mg x 1 discontinue motrin begin zentace continue monitoring alcohol withdrawal sx
[2018-06-28] MEDS: RANITIDINE HCL 150 MG TABLET (FP) PO SCH ×2 (13:29→22:56)
[2018-06-28 14:26] LABS: HEMATOCRIT 41.3 % (35.4-49); MCH 32.5 pg (25.7-33.7); MCHC 33.9 g/dl (32.0-35.9); MEAN CELL VOLUME 95.7 fl (80-96); MEAN PLT VOLUME 8.2 fl (7.5-11.1); PLATELET COUNT 224 K/MM3 (134-434); RBC 4.32 M/mm3 (4.00-5.60); RDW 13.9 % (11.9-15.9); WHITE BLOOD COUNT 6.6 K/mm3 (4.0-10.0)
[2018-06-28 14:28] LABS: PH,URINE 6.5 (5.0-8.0); URINE APPEARANCE CLEAR; URINE BILIRUBIN NEGATIVE (NEGATIVE); URINE COLOR YELLOW; URINE GLUCOSE (UA) NEGATIVE (NEGATIVE); URINE KETONE NEGATIVE (NEGATIVE); URINE LEUK ESTERASE NEGATIVE (NEGATIVE); URINE NITRITE NEGATIVE (NEGATIVE); URINE PROTEIN NEGATIVE (NEGATIVE)
[2018-06-28 14:36] LABS: ALBUMIN 3.8 g/dl (3.4-5.0); ALK PHOS 74 U/L (45-117); ANION GAP 5 MMOL/L (8-16); BILIRUBIN,TOTAL 0.4 mg/dL (0.2-1); BLOOD UREA NITROGEN 11 mg/dL (7-18); CALCIUM 9.1 mg/dL (8.5-10.1); CHLORIDE 107 mmol/L (98-107); CO2 28 mmol/L (21-32); GLUCOSE,RANDOM 113 mg/dL (74-106); POTASSIUM 3.6 mmol/L (3.5-5.1); SGOT/AST 26 U/L (15-37); SGPT/ALT 33 U/L (13-61); SODIUM 141 mmol/L (136-145); TOT PROT 7.1 g/dl (6.4-8.2)
[2018-06-28] MEDS: chlordiazePOXIDE HCL 25 MG CAPSULE PO SCH ×2 (17:31→22:56)
--- NOTE | 2018-06-28 17:38 | CONSULT ---
[facility] Psychiatric Consult - Data Date of interview: 06/28/18 Admission source: [facility] Identifying data: Readmission to [facility] for this 42 y/o AA male self- referred for detoxification (alcohol, heroin, cocaine, cannabis, xanax). Examined at [address] [place] [address]. Patient is single, a father of one, homeless, unemployed and dependent on " panhandling " for support (self-report). Substance Abuse History: Confirmed by the patient in this interview. Details in current [facility] report as follows : Smoking history: Current every day smoker. Have you smoked in the past 12 months: Yes. Aproximately how many cigarettes per day: 10. Hx Chewing Tobacco Use: No. Initiated information on smoking cessation: Yes. 'Breaking Loose' booklet given: 06/28/18. - Substance & Tx. History. Hx Alcohol Use: Yes. Hx Substance Use: Yes. Substance Use Type: Alcohol, Tranquilizers. Hx Substance Use Treatment: Yes ([facility] 05/29/18 not completed). - Substances abused. Alcohol. Substance route: Oral. Frequency: Daily. Amount used: 1 PINT OF VODKA, 2-3 CANS OF BEER (24 OUNCES). Age of first use: 16. Date of last use: 06/27/18. Alprazolam (Xanax). Substance route: Oral. Frequency: 3-6 times per week. Amount used: ONE 1 MG TABLET. Age of first use: 31. Date of last use: 06/26/18. Cocaine. Substance route: Smoking. Frequency: Daily. Amount used: 80$. Age of first use: 16. Date of last use: 06/27/18 Medical History: Remarkable for hypertension and bronchial asthma. Psychiatric History: Patient presents with a history of multiple psychiatric hospitalizations ([facility], [place]). Diagnosed with Schizophrena. Mr Giovanni declares that he has no affiliation with mental health care providers. " I go to emergency rooms to get medications ". Prescribed seroquel 100 mg po bid. Chronically non-adherent to OPD care. History of one suicide attempt (wrist-cutting in 2006). Physical/Sexual Abuse/Trauma History: Patient denies. Additional Comment: Urine drug screen results: LENA-Cocaine, BZO- Benzodiazepines. Noted. Mental Status Exam - Mental Status Exam Alert and Oriented to: Time, Place, Person Cognitive Function: Good Patient Appearance: Well Groomed (muscular built) Mood: Hopeful, Euthymic Affect: Appropriate, Normal Range Patient Behavior: Fatigued, Cooperative Speech Pattern: Clear, Appropriate Voice Loudness: Normal Thought Process: Goal Oriented Thought Disorder: Not Present Hallucinations: Denies Suicidal Ideation: Denies Homicidal Ideation: Denies Insight/Judgement: Poor Sleep: Poorly, Difficulty falling asleep Appetite: Good Muscle strength/Tone: Normal Gait/Station: Normal Psychiatric Findings - Problem List ([place] 1, 2,3) (1) Schizophrenia Current Visit: Yes Status: Chronic Qualifiers: Schizophrenia type: unspecified Qualified Code(s): F20.9 - Schizophrenia, unspecified Comment: Reported by patient.No symptoms elicited at time of this examination.Currently on medications/ OPD care at [facility] health clinic. (2) Sedative, hypnotic or anxiolytic dependence with withdrawal, uncomplicated Current Visit: Yes Status: Acute (3) Alcohol dependence with uncomplicated withdrawal Current Visit: Yes Status: Acute (4) Cannabis dependence Current Visit: Yes Status: Chronic (5) Cocaine dependence, uncomplicated Current Visit: Yes Status: Chronic (6) Nicotine dependence Current Visit: Yes Status: Chronic Qualifiers: Nicotine product type: cigarettes Substance use status: in withdrawal Qualified Code(s): F17.213 - Nicotine dependence, cigarettes, with withdrawal (7) Insomnia Current Visit: Yes Status: Chronic (8) Non-compliance Current Visit: Yes Status: Chronic - Initial Treatment Plan Initial Treatment Plan: Psychoeducation. Sleep hygiene. Detoxification. Support. Seroquel 100 mg po hs. Side effects/benefits discussed with the patient. Consent (verbal) given to MD. Sparrow.
[2018-06-28] MEDS ORDERED: QUEtiapine FUMARATE 100 MG TABLET (FP) PO SCH (22:00)
[2018-06-28] MEDS ORDERED: THIAMINE HCL 100 MG TABLET (FP) PO SCH (22:00)
--- NOTE | 2018-06-28 22:54 | PN ---
[facility] Progress Note Note: Patient complains of nausea. Denies vomiting at this time Vital Signs Temperature 98.2 F 06/28/18 21:05 Pulse Rate 79 06/28/18 21:05 Respiratory Rate 18 06/28/18 21:05 Blood Pressure 131/78 06/28/18 21:05 O2 Sat by Pulse Oximetry (%) Action: Zofran 4mg sublingual ordered
[2018-06-29] MEDS: chlordiazePOXIDE HCL 25 MG CAPSULE PO SCH ×2 (05:51→10:59)
[2018-06-29 09:12] VITALS: BP 144/94; PULSE 64; TEMP 97.2
[2018-06-29] MEDS ORDERED: PRENATAL VITAMINS W/ FOLIC ACID TABLET (FP) PO SCH (10:00)
[2018-06-29] MEDS ORDERED: HYDROCHLOROTHIAZIDE 25 MG TABLET (FP) PO SCH (10:00)
--- NOTE | 2018-06-29 10:55 | PN ---
[facility] CIWA - CIWA Score Nausea/Vomitin-Mild Nausea/No Vomiting (last dose 11 pm zofran doing well today no vomiting mild nausea) Muscle Tremors: 3 Anxiety: 2 Agitation: 2 Paroxysmal Sweats: 1-Minimal Palms Moist Orientation: 3-Disoriented Date>2 days Tacttile Disturbances: 0-None Auditory Disturbances: 0-None Visual Disturbances: 0-None Headache: 0-None Present CIWA-Ar Total Score: 12 [facility] Progress Note (SOAP) Subjective: feeling better today last dose zofran around 11 pm tolerate food and fluid well Objective: 06/29/18 10:54 Vital Signs Temperature 97.2 F L 06/29/18 09:10 Pulse Rate 64 06/29/18 09:10 Respiratory Rate 20 06/29/18 09:10 Blood Pressure 144/94 06/29/18 09:10 O2 Sat by Pulse Oximetry (%) Laboratory Last Values WBC 6.6 K/mm3 (4.0-10.0) 06/28/18 11:30 RBC 4.32 M/mm3 (4.00-5.60) 06/28/18 11:30 Hgb 14.0 GM/dL (11.7-16.9) 06/28/18 11:30 Hct 41.3 % (35.4-49) 06/28/18 11:30 MCV 95.7 fl (80-96) 06/28/18 11:30 MCH 32.5 pg (25.7-33.7) 06/28/18 11:30 MCHC 33.9 g/dl (32.0-35.9) 06/28/18 11:30 RDW 13.9 % (11.9-15.9) 06/28/18 11:30 Plt Count 224 K/MM3 (134-434) 06/28/18 11:30 MPV 8.2 fl (7.5-11.1) 06/28/18 11:30 Sodium 141 mmol/L (136-145) 06/28/18 11:30 Potassium 3.6 mmol/L (3.5-5.1) 06/28/18 11:30 Chloride 107 mmol/L (98-107) 06/28/18 11:30 Carbon Dioxide 28 mmol/L (21-32) 06/28/18 11:30 Anion Gap 5 MMOL/L (8-16) L 06/28/18 11:30 BUN 11 mg/dL (7-18) 06/28/18 11:30 Creatinine 1.0 mg/dL (0.55-1.3) 06/28/18 11:30 Creat Clearance w eGFR 82.35 (>60) 06/28/18 11:30 Random Glucose 113 mg/dL (74-106) H 06/28/18 11:30 Calcium 9.1 mg/dL (8.5-10.1) 06/28/18 11:30 Total Bilirubin 0.4 mg/dL (0.2-1) 06/28/18 11:30 AST 26 U/L (15-37) 06/28/18 11:30 ALT 33 U/L (13-61) 06/28/18 11:30 Alkaline Phosphatase 74 U/L (45-117) 06/28/18 11:30 Total Protein 7.1 g/dl (6.4-8.2) 06/28/18 11:30 Albumin 3.8 g/dl (3.4-5.0) 06/28/18 11:30 Urine Color Yellow 06/28/18 13:10 Urine Appearance Clear 06/28/18 13:10 Urine pH 6.5 (5.0-8.0) 06/28/18 13:10 Ur Specific [place] 1.023 (1.010-1.035) 06/28/18 13:10 Urine Protein Negative (NEGATIVE) 06/28/18 13:10 Urine Glucose (UA) Negative (NEGATIVE) 06/28/18 13:10 Urine Ketones Negative (NEGATIVE) 06/28/18 13:10 Urine Blood Negative (NEGATIVE) 06/28/18 13:10 Urine Nitrite Negative (NEGATIVE) 06/28/18 13:10 Urine Bilirubin Negative (NEGATIVE) 06/28/18 13:10 Urine Urobilinogen 1.0 mg/dL (0.2-1.0) 06/28/18 13:10 Ur Leukocyte Esterase Negative (NEGATIVE) 06/28/18 13:10 RPR Titer Nonreactive (NONREACTIVE) 06/28/18 11:30 lab noted Assessment: 06/29/18 10:54 alcohol and benzo withdrawal sx Plan: continue detox
[2018-06-29] MEDS: RANITIDINE HCL 150 MG TABLET (FP) PO SCH (10:59)
--- NOTE | 2018-06-29 11:15 | DS ---
[facility] Detox Discharge Summary Admission Date: 06/28/18 Discharge Date: 06/29/18 - History Present History: Alcohol Dependence, Sedative Dependence Additional Comments: 42 years old male admitted on 06/28/18 for alcohol and benzo withdrawal stabilization insists to leave the detox unit that he has to go to [facility] for housing arrangement patient is alert no acute distress coherent denies suicidal ideation aftercare [facility] [place], operated by [facility] intensive outpatient treatment facility Pertinent Past History: bring in medication list and lab report to aftercare appointment - Physical Exam Results Vital Signs: Vital Signs Temperature 97.2 F L 06/29/18 09:10 Pulse Rate 64 06/29/18 09:10 Respiratory Rate 20 06/29/18 09:10 Blood Pressure 144/94 06/29/18 09:10 O2 Sat by Pulse Oximetry (%) Pertinent Admission Physical Exam Findings: alcohol and benzo withdrawal sx Laboratory Last Values WBC 6.6 K/mm3 (4.0-10.0) 06/28/18 11:30 RBC 4.32 M/mm3 (4.00-5.60) 06/28/18 11:30 Hgb 14.0 GM/dL (11.7-16.9) 06/28/18 11:30 Hct 41.3 % (35.4-49) 06/28/18 11:30 MCV 95.7 fl (80-96) 06/28/18 11:30 MCH 32.5 pg (25.7-33.7) 06/28/18 11:30 MCHC 33.9 g/dl (32.0-35.9) 06/28/18 11:30 RDW 13.9 % (11.9-15.9) 06/28/18 11:30 Plt Count 224 K/MM3 (134-434) 06/28/18 11:30 MPV 8.2 fl (7.5-11.1) 06/28/18 11:30 Sodium 141 mmol/L (136-145) 06/28/18 11:30 Potassium 3.6 mmol/L (3.5-5.1) 06/28/18 11:30 Chloride 107 mmol/L (98-107) 06/28/18 11:30 Carbon Dioxide 28 mmol/L (21-32) 06/28/18 11:30 Anion Gap 5 MMOL/L (8-16) L 06/28/18 11:30 BUN 11 mg/dL (7-18) 06/28/18 11:30 Creatinine 1.0 mg/dL (0.55-1.3) 06/28/18 11:30 Creat Clearance w eGFR 82.35 (>60) 06/28/18 11:30 Random Glucose 113 mg/dL (74-106) H 06/28/18 11:30 Calcium 9.1 mg/dL (8.5-10.1) 06/28/18 11:30 Total Bilirubin 0.4 mg/dL (0.2-1) 06/28/18 11:30 AST 26 U/L (15-37) 06/28/18 11:30 ALT 33 U/L (13-61) 06/28/18 11:30 Alkaline Phosphatase 74 U/L (45-117) 06/28/18 11:30 Total Protein 7.1 g/dl (6.4-8.2) 06/28/18 11:30 Albumin 3.8 g/dl (3.4-5.0) 06/28/18 11:30 Urine Color Yellow 06/28/18 13:10 Urine Appearance Clear 06/28/18 13:10 Urine pH 6.5 (5.0-8.0) 06/28/18 13:10 Ur Specific [place] 1.023 (1.010-1.035) 06/28/18 13:10 Urine Protein Negative (NEGATIVE) 06/28/18 13:10 Urine Glucose (UA) Negative (NEGATIVE) 06/28/18 13:10 Urine Ketones Negative (NEGATIVE) 06/28/18 13:10 Urine Blood Negative (NEGATIVE) 06/28/18 13:10 Urine Nitrite Negative (NEGATIVE) 06/28/18 13:10 Urine Bilirubin Negative (NEGATIVE) 06/28/18 13:10 Urine Urobilinogen 1.0 mg/dL (0.2-1.0) 06/28/18 13:10 Ur Leukocyte Esterase Negative (NEGATIVE) 06/28/18 13:10 RPR Titer Nonreactive (NONREACTIVE) 06/28/18 11:30 lab noted - Treatment Hospital Course: Detox Protocol Followed, Responded well Patient has Accepted a Rehab Referral to: [facility] intensive out patient - Medication Discharge Medications: Ambulatory Orders Quetiapine Fumarate [Seroquel -] 100 mg PO HS #30 tablet 04/24/18 Hydrochlorothiazide [Hctz -] 25 mg PO DAILY 30 Days #30 tablet 05/29/18 - Diagnosis (1) Alcohol dependence with uncomplicated withdrawal Status: Acute (2) Sedative, hypnotic or anxiolytic dependence with withdrawal, uncomplicated Status: Acute (3) Asthma Status: Chronic Qualifiers: Asthma severity: mild Asthma persistence: intermittent Asthma complication type: uncomplicated Qualified Code(s): J45.20 - Mild intermittent asthma, uncomplicated (4) HTN (hypertension) Status: Chronic Qualifiers: Hypertension type: essential hypertension Qualified Code(s): I10 - Essential (primary) hypertension (5) Nicotine dependence Status: Acute Qualifiers: Nicotine product type: cigarettes Substance use status: in withdrawal Qualified Code(s): F17.213 - Nicotine dependence, cigarettes, with withdrawal (6) Obesity Status: Chronic Qualifiers: Obesity type: unspecified obesity type Obesity classification: adult class 1 (BMI 30 - 34.9) Serious obesity comorbidity presence: without serious comorbidity Body mass index: BMI 33.0-33.9 Qualified Code(s): E66.9 - Obesity, unspecified; Z68.33 - Body mass index (BMI) 33.0-33.9, adult - AMA Did Patient Leave Against Medical Advice: Yes
[2018-06-29] MEDS ORDERED: chlordiazePOXIDE HCL 25 MG CAPSULE PO SCH (17:00)
[2018-06-30] MEDS ORDERED: chlordiazePOXIDE HCL 10 MG CAPSULE PO PRN (17:00)
[2018-06-30] MEDS ORDERED: chlordiazePOXIDE HCL 10 MG CAPSULE PO SCH (17:00)
[2018-07-01] MEDS ORDERED: chlordiazePOXIDE HCL 10 MG CAPSULE PO SCH (17:00)
== END 2018-06-29 11:27 | disposition left against medical advice (07) | DRG 770 ==
LOC: YASAS 09:24 → Y3N 11:40
PROVIDERS: ADMIT Surgery; ATTEND Surgery
PROC: HZ2ZZZZ Detoxification Services for Substance Abuse Treatment (ICD-10-PCS; principal; 2018-06-28)
DX: F10.230 Alcohol dependence with withdrawal, uncomplicated (principal); F13.230 Sedative, hypnotic or anxiolytic dependence with withdrawal, uncomplicated; F14.20 Cocaine dependence, uncomplicated; F12.20 Cannabis dependence, uncomplicated; F17.210 Nicotine dependence, cigarettes, uncomplicated; F20.0 Paranoid schizophrenia; F20.9 Schizophrenia, unspecified; G47.00 Insomnia, unspecified; I10 Essential (primary) hypertension; J45.20 Mild intermittent asthma, uncomplicated; E66.9 Obesity, unspecified; Z68.33 Body mass index [BMI] 33.0-33.9, adult; Z88.8 Allergy status to other drugs, medicaments and biological substances
CPT/HCPCS: 36415; 80053; 81003; 85027; 86593; Q0162

== ENCOUNTER 2018-07-12 14:18 | Inpatient (IN) | payer OTHER ==
--- NOTE | 2018-07-12 19:49 | HP ---
COWS - Scale Resting Pulse: 0= [place] 80 or Below Sweatin= No chills or Flushing CIWA Score Nausea/Vomitin-Mild Nausea/No Vomiting Muscle Tremors: None Anxiety: 1-Mildly Anxious Agitation: 0-Normal Activity Paroxysmal Sweats: No Perspiration Orientation: 2-Disoriented Date<2 days Tacttile Disturbances: 2-Mild Itch/Numbness/Burn Auditory Disturbances: 2-Mild Harshness/Frighten Visual Disturbances: 2-Mild Sensitivity Headache: 3-Moderate CIWA-Ar Total Score: 13 - Admission Criteria OASAS Guidelines: Admission for Medically Managed Detox: Requires at least one of the followin. CIWA greater than 12 2. Seizures within the past 24 hours 3. Delirium tremens within the past 24 hours 4. Hallucinations within the past 24 hours 5. Acute intervention needed for co occurring medical disorder 6. Acute intervention needed for co occurring psychiatric disorder 7. Severe withdrawal that cannot be handled at a lower level of care (continued vomiting, continued diarrhea, abnormal vital signs) requiring intravenous medication and/or fluids 8. Patient presents the following: CIWA greater than 12, Acute intervention needed for co-occurring med or psych disorder Admission Criteria Met: Admission criteria met Admission ROS [facility] Chief Complaint: c/o withdrawal sx's. seeking detox txment Allergies/Adverse Reactions: Allergies Allergy/AdvReac Type Severity Reaction Status Date / Time fluphenazine [From Prolixin] Allergy Intermediate Swelling Verified 07/12/18 20: 15 haloperidol [From Haldol] Allergy Intermediate Swelling Verified 07/12/18 20:15 History of Present Illness: 42 Y.O. MALE WITH ALCOHOLISM AND COCAINE, CANNABIS, BZO DEPENDENCE HERE FOR DETOX. CLIENT WAS HERE 2 WEEKS AGO AND SIGNED OUT AMA. HE REPORTS HE HAD A COURT CASE HE HAD TO APPEAR FOR. HE REPORTS IMMEDIATELY RELAPSING AFTER SIGNING OUT. DRINKING DAILY. LAST DRINK EARLIER TODAY DUE TO WITHDRAWAL SX'S. PRESENTS NOW WITH ONGOIGN WITHDRAWAL SX'S. CIWA 12. DENIES ANY SIGNIFICANT CLEAN TIME. DENIES HX/O SZ, BLACK OUTS, OVERDOSE, SI/HI/AVH. HOMELESS, UNEMPLOYED, DENIES LEGALS. Exam Limitations: No Limitations - Ebola screening Have you traveled outside of the country in the last 21 days: No Have you had contact with anyone from an Ebola affected area: No Do you have a fever: No - Review of Systems Constitutional: Chills, Loss of Appetite, Malaise, Night Sweats, Changes in sleep EENT: reports: Blurred Vision Respiratory: reports: Shortness of Breath (HX/O ASTHM,A) Cardiac: reports: No Symptoms Reported GI: reports: Nausea, Poor Fluid Intake : reports: No Symptoms Reported Musculoskeletal: reports: No Symptoms Reported Integumentary: reports: No Symptoms Reported Neuro: reports: Headache, Numbness (ble), Tingling (to ble) Endocrine: reports: No Symptoms Reported Hematology: reports: No Symptoms Reported Psychiatric: reports: Anxious Other Systems: Reviewed and Negative Patient History - Patient Medical History Hx Anemia: No Hx Asthma: Yes (on albuterol inhaler) Hx Chronic Obstructive Pulmonary Disease (COPD): No Hx Cancer: No Hx Cardiac Disorders: No Hx Congestive Heart Failure: No Hx Hypertension: Yes (on hydrochlorothizide 25 mgs po daily) Hx Hypercholesterolemia: No Hx Pacemaker: No HX Cerebrovascular Accident: No Hx Seizures: No Hx Dementia: No Hx Diabetes: No Hx Gastrointestinal Disorders: No Hx Liver Disease: No Hx Genitourinary Disorders: No Hx Sexually Transmitted Disorders: No Hx Renal Disease (ESRD): No Hx Thyroid Disease: No Hx Human Immunodeficiency Virus (HIV): No (03/18 last negative) Hx Hepatitis C: No Hx Depression: No Hx Suicide Attempt: No Hx Bipolar Disorder: Yes Hx Schizophrenia: Yes (paranoid schizophrenia ) - Patient Surgical History Past Surgical History: No Hx Neurologic Surgery: No Hx Cataract Extraction: No Hx Cardiac Surgery: No Hx Lung Surgery: No Hx Breast Surgery: No Hx Breast Biopsy: No Hx Abdominal Surgery: No Hx Appendectomy: No Hx Cholecystectomy: No Hx Genitourinary Surgery: No Hx Section: No Hx Orthopedic Surgery: No Anesthesia Reaction: No - PPD History Previous Implant?: Yes Documented Results: Negative w/o proof Implanted On Prior [facility] Admission?: Yes Date: 05/30/18 Results: no reading PPD to be Administered?: Yes - Smoking Cessation Smoking history: Current every day smoker Have you smoked in the past 12 months: Yes Aproximately how many cigarettes per day: 10 Cigars Per Day: 0 Hx Chewing Tobacco Use: No Initiated information on smoking cessation: Yes 'Breaking Loose' booklet given: 07/12/18 - Substance & Tx. History Hx Alcohol Use: Yes Hx Substance Use: Yes Substance Use Type: Alcohol, Cocaine, Tranquilizers Hx Substance Use Treatment: Yes ([facility]) - Substances abused Alcohol Substance route: Oral Frequency: Daily Amount used: 3 pints daily Age of first use: 16 Date of last use: 07/11/18 Alprazolam (Xanax) Substance route: Oral Frequency: 3-6 times per week Amount used: ONE 2 MG TABLET Age of first use: 31 Date of last use: 06/26/18 Cocaine Substance route: Smoking Frequency: Daily Amount used: $80 - $100 Age of first use: 16 Date of last use: 07/11/18 Family Disease History - Family Disease History Family Disease History: Other: Father (ADDICTED TO HEROIN AND ), Mother ( MOTHER WAS ADDICTED TO ETOH AND ) Admission Physical Exam [facility] - Physical General Appearance: Yes: Disheveled, Mild Distress, Anxious HEENTM: Yes: EOMI, Normocephalic, GOMEZ, Pharynx Normal, Other (stribymus) Respiratory: Yes: Chest Non-Tender, Lungs Clear, Normal Breath Sounds, No Respiratory Distress, No Accessory Muscle Use Neck: Yes: No masses,lesions,Nodules, Supple, Trachea in good position, Other ( rash) Breast: Yes: Breast Exam Deferred Cardiology: Yes: Regular Rhythm, Regular Rate, S1, S2 Abdominal: Yes: Normal Bowel Sounds, Non Tender, Soft Genitourinary: Yes: Within Normal Limits Back: Yes: Normal Inspection Musculoskeletal: Yes: full range of Motion, Gait Steady Extremities: Yes: Normal Range of Motion, Non-Tender, Tremors (midly felt) Neurological: Yes: Fully Oriented, Alert, Motor Strength 5/5 Integumentary: Yes: Dry, Warm, Rash (non erythematous pruritic rash to neck.) Lymphatic: Yes: Within Normal Limits - Diagnostic (1) Alcohol dependence with uncomplicated withdrawal Current Visit: Yes Status: Acute (2) Nicotine dependence Current Visit: Yes Status: Acute Qualifiers: Nicotine product type: cigarettes Substance use status: in withdrawal Qualified Code(s): F17.213 - Nicotine dependence, cigarettes, with withdrawal (3) Sedative, hypnotic or anxiolytic dependence with withdrawal, uncomplicated Current Visit: Yes Status: Acute (4) Substance induced mood disorder Current Visit: Yes Status: Suspected (5) Asthma Current Visit: Yes Status: Chronic Qualifiers: Asthma severity: mild Asthma persistence: intermittent Asthma complication type: uncomplicated Qualified Code(s): J45.20 - Mild intermittent asthma, uncomplicated (6) Cannabis dependence Current Visit: Yes Status: Acute (7) Cocaine dependence, uncomplicated Current Visit: Yes Status: Acute (8) Depression Current Visit: Yes Status: Chronic Comment: hx/o declines psych consult (9) HTN (hypertension) Current Visit: Yes Status: Chronic Qualifiers: Hypertension type: essential hypertension Qualified Code(s): I10 - Essential (primary) hypertension (10) Neuropathy Current Visit: Yes Status: Chronic (11) Non-compliance Current Visit: Yes Status: Suspected Comment: client reports non compliance with antihypertensives (12) Schizophrenia Current Visit: Yes Status: Suspected Qualifiers: Schizophrenia type: unspecified Qualified Code(s): F20.9 - Schizophrenia, unspecified Comment: Reported by patient.No symptoms elicited at time of this examination.Currently on medications/ OPD care at [facility] health clinic. (13) Homelessness Current Visit: Yes Status: Suspected Cleared for Admission S - Detox or Rehab S Level of Care: Medically Managed Detox Regimen/Protocol: Librium Claeared for Rehab Admission: No Breathalyzer - Breathalyzer Breathalyzer: 0 Vital Signs - Vital Signs Vital signs refused: Yes Temperature: 98.6 F Temperature source: Oral Pulse Rate: 60 Respiratory Rate: 20 Blood Pressure: 156/108 BP Location: Right Arm Blood Pressure position: Sitting - Height Height: 5 ft 11 in - Weight Weight: 107.048 kg Weight measurement method: Standing scale - BMI Body Mass Index (BMI): 32.9 - Bowel Function Bowel Movement: No Urine Drug Screen - Test Device Lot number: [id number] Expiration date: 01/28/20 - Control Is test valid?: Yes - Results Drug screen NEGATIVE: No Urine drug screen results: THC-Marijuana, LENA-Cocaine, BZO-Benzodiazepines Inpatient Rehab Admission - Rehab Decision to Admit Inpatient rehab admission?: No
[2018-07-12] MEDS ORDERED: IBUPROFEN 400 MG TABLET (FP) PO PRN ×2 (20:00)
[2018-07-12] MEDS ORDERED: NICOTINE POLACRILEX 2 MG GUM BUC PRN (20:00)
[2018-07-12] MEDS ORDERED: DICYCLOMINE HCL 10 MG CAPSULE PO PRN (20:00)
[2018-07-12] MEDS ORDERED: BISMUTH SUBSALICYLATE 524 MG/30 ML UD PO PRN (20:00)
[2018-07-12] MEDS ORDERED: ONDANSETRON *ODT* 4 MG TABLET SL PRN (20:00)
[2018-07-12] MEDS ORDERED: hydrOXYzine PAMOATE 25 MG CAPSULE (FP) PO PRN (20:00)
[2018-07-12] MEDS ORDERED: chlordiazePOXIDE HCL 10 MG CAPSULE PO PRN (20:00)
[2018-07-12] MEDS ORDERED: guaiFENesin 200 MG/10 ML 10 ML UNIT-DOSE CUPS PO PRN (20:00)
[2018-07-12] MEDS ORDERED: MAGNESIUM HYDROX 2400MG/30ML ORAL SUSPENSION 30 ML CUP PO PRN (20:00)
[2018-07-12] MEDS ORDERED: MAGNESIUM CITRATE 300 ML BOTTLE PO PRN (20:00)
[2018-07-12] MEDS ORDERED: METHOCARBAMOL 500 MG TABLET PO PRN (20:00)
[2018-07-12] MEDS ORDERED: MENTHOL/PHENOL 1 EACH UD MM PRN (20:00)
[2018-07-12] MEDS ORDERED: MAG HYDROX/AL HYDROX/SIMETH 30 ML UNIT-DOSE CUP PO PRN (20:00)
[2018-07-12] MEDS ORDERED: MELATONIN 5 MG TABLETS PO PRN (20:00)
[2018-07-12] MEDS ORDERED: P-EPHED 60MG/TRIPROLIDI 2.5MG TABLET PO PRN (20:00)
[2018-07-12] MEDS ORDERED: ACETAMINOPHEN 325 MG TABLET (FP) PO PRN ×2 (20:00)
[2018-07-12 20:23] VITALS: BMI 32.9
[2018-07-12] MEDS ORDERED: cloNIDine HCL 0.1 MG TABLET PO ONE (21:12)
[2018-07-12] MEDS ORDERED: HYDROCORTISONE 1% TOPICAL OINT 30 GM TUBE TP PRN (21:13)
[2018-07-12] MEDS ORDERED: THIAMINE HCL 100 MG TABLET (FP) PO SCH (22:00)
[2018-07-12] MEDS: chlordiazePOXIDE HCL 25 MG CAPSULE PO SCH (22:13)
[2018-07-13] MEDS: chlordiazePOXIDE HCL 25 MG CAPSULE PO SCH ×2 (06:20→14:32)
[2018-07-13 09:46] VITALS: BP 144/55; PULSE 76; TEMP 98
[2018-07-13] MEDS ORDERED: HYDROCHLOROTHIAZIDE 25 MG TABLET (FP) PO SCH (10:00)
[2018-07-13] MEDS ORDERED: PRENATAL VITAMINS W/ FOLIC ACID TABLET (FP) PO SCH (10:00)
[2018-07-13] MEDS ORDERED: NICOTINE 14 MG/24 HOURS TOPICAL PATCH TD SCH (10:00)
--- NOTE | 2018-07-13 10:23 | PN ---
[facility] CIWA - CIWA Score Nausea/Vomitin-Mild Nausea/No Vomiting Muscle Tremors: 3 Anxiety: 1-Mildly Anxious Agitation: 3 Paroxysmal Sweats: 1-Minimal Palms Moist Orientation: 2-Disoriented Date<2 days Tacttile Disturbances: 0-None Auditory Disturbances: 0-None Visual Disturbances: 0-None Headache: 0-None Present CIWA-Ar Total Score: 11 [facility] Progress Note (SOAP) Subjective: feeling ok today tired resting on bed irritable Objective: 07/13/18 10:33 Vital Signs Temperature 98.0 F 07/13/18 09:45 Pulse Rate 76 07/13/18 09:45 Respiratory Rate 20 07/13/18 09:45 Blood Pressure 144/55 L 07/13/18 09:45 O2 Sat by Pulse Oximetry (%) see lab 06/2018 Assessment: 07/13/18 10:35 alcohol withdrawal sx Plan: continue detox
--- NOTE | 2018-07-13 11:06 | CONSULT ---
[facility] Psychiatric Consult - Data Date of interview: 07/13/18 Admission source: [facility] Identifying data: Patient is a 42 year old single male, father of one, unemployed, homeless, and is supported by public assistance. This is one of multiple admissions for patient. Patient admitted to for cocaine dependence. Substance Abuse History: Smoking Cessation. Smoking history: Current every day smoker. Have you smoked in the past 12 months: Yes. Aproximately how many cigarettes per day: 10. Cigars Per Day: 0. Hx Chewing Tobacco Use: No. Initiated information on smoking cessation: Yes. 'Breaking Loose' booklet given : 07/12/18. - Substance & Tx. History. Hx Alcohol Use: Yes. Hx Substance Use : Yes. Substance Use Type: Alcohol, Cocaine, Tranquilizers. Hx Substance Use Treatment: Yes ([facility]). - Substances abused. Alcohol. Substance route: Oral. Frequency: Daily. Amount used: 3 pints daily. Age of first use: 16. Date of last use: 07/11/18. Alprazolam (Xanax). Substance route: Oral. Frequency: 3-6 times per week. Amount used: ONE 2 MG TABLET. Age of first use : 31. Date of last use: 06/26/18. Cocaine. Substance route: Smoking. Frequency: Daily. Amount used: $80 - $100. Age of first use: 16. Date of last use: 07/11/18 Medical History: Remarkable for hypertension and bronchial asthma. Psychiatric History: Patient reports h/o multiple psychiatric hospitalizations, most recently three years ago at [facility] for auditory and visual hallucinations. Patient is also known to [facility], and [facility]. Mr. Davila reports a diagnosis of paranoid schizophrenia. Reports accepting seroquel 100mg HS. Patient is nonadherent to outpatient care. States he receives medication in detox/rehab settings and in emergency rooms. At present he reports stable mood. He denies auditory and visual hallucinations. No psychosis noted. Physical/Sexual Abuse/Trauma History: denies. Mental Status Exam - Mental Status Exam Alert and Oriented to: Time, Place, Person Cognitive Function: Good Patient Appearance: Well Groomed Mood: Euthymic Affect: Mood Congruent Patient Behavior: Cooperative Speech Pattern: Appropriate Voice Loudness: Normal Thought Process: Goal Oriented Thought Disorder: Not Present Hallucinations: Denies Suicidal Ideation: Denies Homicidal Ideation: Denies Insight/Judgement: Poor Sleep: Poorly Appetite: Poor Muscle strength/Tone: Normal Gait/Station: Normal Psychiatric Findings - Problem List ([place] 1, 2,3) (1) Alcohol dependence with uncomplicated withdrawal Current Visit: Yes Status: Acute (2) Cannabis dependence Current Visit: Yes Status: Acute (3) Cocaine dependence, uncomplicated Current Visit: Yes Status: Acute (4) Sedative, hypnotic or anxiolytic dependence with withdrawal, uncomplicated Current Visit: Yes Status: Acute (5) Schizophrenia Current Visit: Yes Status: Chronic Qualifiers: Schizophrenia type: unspecified Qualified Code(s): F20.9 - Schizophrenia, unspecified Comment: Reported by patient.No symptoms elicited at time of this examination.Currently on medications/ OPD care at [facility]. - Initial Treatment Plan Initial Treatment Plan: Psychoeducation provided. Detoxification in progress. Will order Seroquel 100mg HS. Benefits and side effects discussed. Verbal consent given.
[2018-07-13 12:39] LABS: PH,URINE 6.5 (5.0-8.0); URINE APPEARANCE CLEAR; URINE BILIRUBIN NEGATIVE (NEGATIVE); URINE COLOR YELLOW; URINE GLUCOSE (UA) NEGATIVE (NEGATIVE); URINE KETONE NEGATIVE (NEGATIVE); URINE LEUK ESTERASE NEGATIVE (NEGATIVE); URINE NITRITE NEGATIVE (NEGATIVE); URINE PROTEIN NEGATIVE (NEGATIVE); URINE UROBILINOGEN 0.2 mg/dL (0.2-1.0)
[2018-07-13] MEDS ORDERED: chlordiazePOXIDE 5 MG CAPSULE PO SCH (21:00)
[2018-07-13] MEDS ORDERED: QUEtiapine FUMARATE 100 MG TABLET (FP) PO SCH (22:00)
[2018-07-14] MEDS ORDERED: chlordiazePOXIDE HCL 10 MG CAPSULE PO PRN (21:00)
[2018-07-14] MEDS ORDERED: chlordiazePOXIDE HCL 10 MG CAPSULE PO SCH (21:00)
== END 2018-07-13 18:25 | disposition left against medical advice (07) | DRG 770 ==
LOC: YASAS 14:18 → Y3N 21:04
PROVIDERS: ADMIT Surgery; ATTEND Surgery
PROC: HZ2ZZZZ Detoxification Services for Substance Abuse Treatment (ICD-10-PCS; principal; 2018-07-12)
DX: F10.230 Alcohol dependence with withdrawal, uncomplicated (principal); F13.230 Sedative, hypnotic or anxiolytic dependence with withdrawal, uncomplicated; F14.20 Cocaine dependence, uncomplicated; F12.20 Cannabis dependence, uncomplicated; F17.210 Nicotine dependence, cigarettes, uncomplicated; F20.9 Schizophrenia, unspecified; F19.24 Other psychoactive substance dependence with psychoactive substance-induced mood disorder; F32.9 Major depressive disorder, single episode, unspecified; I10 Essential (primary) hypertension; J45.909 Unspecified asthma, uncomplicated; G62.9 Polyneuropathy, unspecified; Z91.14 Patient's other noncompliance with medication regimen; Z59.0 Homelessness
CPT/HCPCS: 81003; J0735

== ENCOUNTER 2022-02-11 13:14 | Inpatient (IN) | payer OTHER ==
[2022-02-11] MEDS ORDERED: NICOTINE 21 MG/24 HOURS TOPICAL PATCH TD PRN (14:32)
[2022-02-11] MEDS ORDERED: ACETAMINOPHEN 325 MG TABLET (FP) PO PRN ×2 (14:32)
[2022-02-11] MEDS ORDERED: NICOTINE POLACRILEX 4 MG GUM BUC PRN (14:32)
[2022-02-11] MEDS ORDERED: DICYCLOMINE HCL 10 MG CAPSULE PO PRN (14:32)
[2022-02-11] MEDS ORDERED: POLYETHYLENE GLYCOL (HEALTHYLAX) 3350 17 GM PACKET PO PRN (14:32)
[2022-02-11] MEDS ORDERED: BENZOCAINE/MENTHOL (CHLORASEPTIC ) LOZENGE MM PRN (14:32)
[2022-02-11] MEDS ORDERED: BISMUTH SUBSALICYLATE 262 MG/15 ML BTL PO PRN (14:32)
[2022-02-11] MEDS ORDERED: MAGNESIUM HYDROX 2400MG/30ML ORAL SUSPENSION 30 ML CUP PO PRN (14:32)
[2022-02-11] MEDS ORDERED: hydrOXYzine PAMOATE 25 MG CAPSULE (FP) PO PRN (14:32)
[2022-02-11] MEDS ORDERED: ONDANSETRON *ODT* 4 MG TABLET SL PRN (14:32)
[2022-02-11] MEDS ORDERED: LORazepam 1 MG TABLET PO PRN (14:32)
[2022-02-11] MEDS ORDERED: METHOCARBAMOL 500 MG TABLET PO PRN (14:32)
[2022-02-11] MEDS ORDERED: LOPERAMIDE HCL 2 MG CAPSULE PO PRN (14:32)
[2022-02-11] MEDS ORDERED: MAG HYDROX/AL HYDROX/SIMETH 30 ML UNIT-DOSE CUP PO PRN (14:32)
[2022-02-11] MEDS ORDERED: IBUPROFEN 600 MG TABLET (FP) PO PRN (14:32)
[2022-02-11] MEDS ORDERED: IBUPROFEN 400 MG TABLET (FP) PO PRN (14:32)
[2022-02-11] MEDS ORDERED: NICOTINE 10 MG CARTRIDGE (INHALER) IH PRN (14:32)
[2022-02-11] MEDS ORDERED: ALBUTEROL SO4 HFA INHALER IH PRN (14:38)
[2022-02-11 15:41] VITALS: BMI 28.8
[2022-02-11] MEDS: LORazepam 2 MG TABLET PO SCH ×2 (17:42→22:24)
[2022-02-11] MEDS ORDERED: MELATONIN 5 MG TABLETS PO SCH (22:00)
[2022-02-11] MEDS ORDERED: THIAMINE HCL 100 MG TABLET (FP) PO SCH (22:00)
[2022-02-11] MEDS: MINERAL OIL/PETROLAT/WATER TOPICAL CREAM 113 GM JAR TP SCH (22:24)
[2022-02-12] MEDS: LORazepam 2 MG TABLET PO SCH ×3 (05:44→17:28)
[2022-02-12] MEDS ORDERED: HYDROCHLOROTHIAZIDE 12.5 MG CAPSULE (FP) PO SCH (10:00)
[2022-02-12] MEDS ORDERED: PRENATAL VITAMINS W/ FOLIC ACID TABLET (FP) PO SCH (10:00)
[2022-02-12] MEDS: MINERAL OIL/PETROLAT/WATER TOPICAL CREAM 113 GM JAR TP SCH (10:40)
[2022-02-12 12:30] LABS: ALBUMIN 3.2 g/dl (3.4-5.0); BLOOD UREA NITROGEN 13.2 mg/dL (7-18)
[2022-02-12 12:33] LABS: CREATININE 0.9 mg/dL (0.55-1.3)
[2022-02-12 12:35] LABS: BILIRUBIN,TOTAL 0.4 mg/dL (0.2-1); TOT PROT 6.6 g/dl (6.4-8.2)
[2022-02-12 12:41] LABS: HEMATOCRIT 39.8 % (35.4-49); HEMOGLOBIN 13.4 GM/dL (11.7-16.9); MCH 32.6 pg (25.7-33.7); MCHC 33.8 g/dl (32.0-35.9); MEAN CELL VOLUME 96.5 fl (80-96); MEAN PLT VOLUME 7.5 fl (7.5-11.1); PLATELET COUNT 278 10^3/uL (134-434); RBC 4.12 M/mm3 (4.00-5.60); RDW 13.8 % (11.9-15.9); WHITE BLOOD COUNT 5.8 K/mm3 (4.0-10.0)
[2022-02-12 13:05] VITALS: RESP 18; TEMP 97.3
[2022-02-12 18:08] VITALS: BP 141/96; PULSE 87
[2022-02-13] MEDS ORDERED: LORazepam 1 MG TABLET PO SCH (05:00)
[2022-02-14] MEDS ORDERED: LORazepam 0.5 MG TABLET PO PRN
[2022-02-14] MEDS ORDERED: LORazepam 0.5 MG TABLET PO SCH (05:00)
[2022-02-15] MEDS ORDERED: LORazepam 0.5 MG TABLET PO ONE (05:00)
== END 2022-02-12 17:45 | disposition home or self-care (01) | DRG 774 ==
LOC: YASAS 13:14 → Y6N 14:39
PROVIDERS: ADMIT Allergy & Immunology; ATTEND Surgery
PROC: HZ2ZZZZ Detoxification Services for Substance Abuse Treatment (ICD-10-PCS; principal; 2022-02-11)
DX: F10.230 Alcohol dependence with withdrawal, uncomplicated (principal); F14.20 Cocaine dependence, uncomplicated; F17.210 Nicotine dependence, cigarettes, uncomplicated; F91.8 Other conduct disorders; F60.2 Antisocial personality disorder; F20.9 Schizophrenia, unspecified; I10 Essential (primary) hypertension; J45.20 Mild intermittent asthma, uncomplicated; Z88.8 Allergy status to other drugs, medicaments and biological substances
CPT/HCPCS: 36415; 80053; 85027; 86780; 93005; 93010; C9803-CS; U0003; U0005

== ENCOUNTER 2022-06-15 14:28 | Inpatient (IN) | payer OTHER ==
[2022-06-15 14:59] VITALS: BMI 30.1
[2022-06-15] MEDS ORDERED: NALOXONE HCL (KLOXXADO) 8 MG SPRAY NS PRN (20:01)
[2022-06-15] MEDS ORDERED: BISMUTH SUBSALICYLATE 524 MG/30 ML PO PRN (20:01)
[2022-06-15] MEDS ORDERED: LOPERAMIDE HCL 2 MG CAPSULE PO PRN (20:01)
[2022-06-15] MEDS ORDERED: DICYCLOMINE HCL 10 MG CAPSULE PO PRN (20:01)
[2022-06-15] MEDS ORDERED: NICOTINE 10 MG CARTRIDGE (INHALER) IH PRN (20:01)
[2022-06-15] MEDS ORDERED: MAGNESIUM HYDROX 2400MG/30ML ORAL SUSPENSION 30 ML CUP PO PRN (20:01)
[2022-06-15] MEDS ORDERED: guaiFENesin 600 MG TABLET.ER (FP) PO PRN (20:01)
[2022-06-15] MEDS ORDERED: diazePAM 5 MG TABLET PO PRN (20:01)
[2022-06-15] MEDS ORDERED: ONDANSETRON *ODT* 4 MG TABLET SL PRN (20:01)
[2022-06-15] MEDS ORDERED: ACETAMINOPHEN 325 MG TABLET (FP) PO PRN (20:01)
[2022-06-15] MEDS ORDERED: hydrOXYzine PAMOATE 25 MG CAPSULE (FP) PO PRN (20:01)
[2022-06-15] MEDS ORDERED: BENZOCAINE/MENTHOL (CHLORASEPTIC ) LOZENGE MM PRN (20:01)
[2022-06-15] MEDS ORDERED: IBUPROFEN 600 MG TABLET (FP) PO PRN (20:01)
[2022-06-15] MEDS ORDERED: MAG HYDROX/AL HYDROX/SIMETH 30 ML UNIT-DOSE CUP PO PRN (20:01)
[2022-06-15] MEDS ORDERED: METHOCARBAMOL 500 MG TABLET PO PRN (20:01)
[2022-06-15] MEDS ORDERED: NALOXONE HCL 0.4 MG/ML VIAL IM PRN (20:01)
[2022-06-15] MEDS ORDERED: BENZONATATE 200 MG CAPSULE PO PRN (20:01)
[2022-06-15] MEDS ORDERED: IBUPROFEN 400 MG TABLET (FP) PO PRN (20:01)
[2022-06-15] MEDS ORDERED: POLYETHYLENE GLYCOL (HEALTHYLAX) 3350 17 GM PACKET PO PRN (20:01)
[2022-06-15] MEDS ORDERED: ALBUTEROL SO4 HFA INHALER IH PRN (20:15)
[2022-06-15] MEDS: THIAMINE HCL 100 MG TABLET (FP) PO SCH (22:33)
[2022-06-15] MEDS: MELATONIN 5 MG TABLETS PO SCH (22:33)
[2022-06-15] MEDS: diazePAM 5 MG TABLET PO SCH (22:33)
[2022-06-16] MEDS: diazePAM 5 MG TABLET PO SCH ×4 (06:01→22:27)
[2022-06-16] MEDS ORDERED: PRENATAL VITAMINS W/ FOLIC ACID TABLET (FP) PO SCH (10:00)
[2022-06-16] MEDS ORDERED: HYDROCHLOROTHIAZIDE 25 MG TABLET (FP) PO SCH (10:00)
[2022-06-16 11:07] LABS: HEMATOCRIT 40.1 % (35.4-49); MCH 32.8 pg (25.7-33.7); MCHC 34.8 g/dl (32.0-35.9); MEAN CELL VOLUME 94.3 fl (80-96); MEAN PLT VOLUME 7.8 fl (7.5-11.1); PLATELET COUNT 213 10^3/uL (134-434); RBC 4.25 M/mm3 (4.00-5.60); RDW 13.8 % (11.9-15.9); WHITE BLOOD COUNT 5.3 K/mm3 (4.0-10.0)
[2022-06-16 11:16] LABS: CALCIUM 9.2 mg/dL (8.5-10.1)
[2022-06-16 11:17] LABS: ALBUMIN 3.5 g/dl (3.4-5.0); BLOOD UREA NITROGEN 14.9 mg/dL (7-18)
[2022-06-16 11:19] LABS: CREATININE 0.9 mg/dL (0.55-1.3)
[2022-06-16 11:21] LABS: TOT PROT 6.7 g/dl (6.4-8.2)
[2022-06-16 12:05] LABS: HIV INTERPRETATION NEGATIVE (NEGATIVE)
[2022-06-16] MEDS ORDERED: HYDROCHLOROTHIAZIDE 25 MG TABLET (FP) PO ONE (13:30)
[2022-06-16] MEDS ORDERED: cloNIDine HCL 0.1 MG TABLET PO ONE (17:32)
[2022-06-16] MEDS ORDERED: cloNIDine HCL 0.1 MG TABLET PO PRN (17:33)
[2022-06-16] MEDS: THIAMINE HCL 100 MG TABLET (FP) PO SCH (22:27)
[2022-06-16] MEDS: MELATONIN 5 MG TABLETS PO SCH (22:27)
[2022-06-17] MEDS ORDERED: diazePAM 5 MG TABLET PO SCH (06:00)
[2022-06-17 06:27] VITALS: BP 151/94; PULSE 65; RESP 16; TEMP 98
[2022-06-18] MEDS ORDERED: diazePAM 5 MG TABLET PO SCH (06:00)
[2022-06-19] MEDS ORDERED: diazePAM 5 MG TABLET PO ONE (06:00)
== END 2022-06-17 08:57 | disposition left against medical advice (07) | DRG 770 ==
LOC: YASAS 14:28 → Y3N 20:23
PROVIDERS: ADMIT Allergy & Immunology; ATTEND Surgery
PROC: HZ2ZZZZ Detoxification Services for Substance Abuse Treatment (ICD-10-PCS; principal; 2022-06-15)
DX: F10.230 Alcohol dependence with withdrawal, uncomplicated (principal); F14.20 Cocaine dependence, uncomplicated; F12.20 Cannabis dependence, uncomplicated; F17.213 Nicotine dependence, cigarettes, with withdrawal; F20.9 Schizophrenia, unspecified; Z86.19 Personal history of other infectious and parasitic diseases
CPT/HCPCS: 36415; 80053; 85027; 86780; 87389; 87811; C9803-CS; U0003; U0005

== ENCOUNTER 2022-08-05 18:10 | Inpatient (IN) | payer OTHER ==
[2022-08-05 18:56] VITALS: BMI 32.1
[2022-08-05] MEDS ORDERED: MAGNESIUM HYDROX 2400MG/30ML ORAL SUSPENSION 30 ML CUP PO PRN (22:36)
[2022-08-05] MEDS ORDERED: guaiFENesin 600 MG TABLET.ER (FP) PO PRN (22:36)
[2022-08-05] MEDS ORDERED: MELATONIN 5 MG TABLETS PO PRN (22:36)
[2022-08-05] MEDS ORDERED: IBUPROFEN 400 MG TABLET (FP) PO PRN (22:36)
[2022-08-05] MEDS ORDERED: METHOCARBAMOL 500 MG TABLET PO PRN (22:36)
[2022-08-05] MEDS ORDERED: ONDANSETRON *ODT* 4 MG TABLET SL PRN (22:36)
[2022-08-05] MEDS ORDERED: NALOXONE HCL (KLOXXADO) 8 MG SPRAY NS PRN (22:36)
[2022-08-05] MEDS ORDERED: NICOTINE 10 MG CARTRIDGE (INHALER) IH PRN (22:36)
[2022-08-05] MEDS ORDERED: IBUPROFEN 600 MG TABLET (FP) PO PRN (22:36)
[2022-08-05] MEDS ORDERED: POLYETHYLENE GLYCOL (HEALTHYLAX) 3350 17 GM PACKET PO PRN (22:36)
[2022-08-05] MEDS ORDERED: hydrOXYzine PAMOATE 25 MG CAPSULE (FP) PO PRN (22:36)
[2022-08-05] MEDS ORDERED: LOPERAMIDE HCL 2 MG CAPSULE PO PRN (22:36)
[2022-08-05] MEDS ORDERED: DICYCLOMINE HCL 10 MG CAPSULE PO PRN (22:36)
[2022-08-05] MEDS ORDERED: P-EPHED 60MG/TRIPROLIDI 2.5MG TABLET PO PRN (22:36)
[2022-08-05] MEDS ORDERED: BISMUTH SUBSALICYLATE 524 MG/30 ML PO PRN (22:36)
[2022-08-05] MEDS ORDERED: NALOXONE HCL 0.4 MG/ML VIAL IM PRN (22:36)
[2022-08-05] MEDS ORDERED: ACETAMINOPHEN 325 MG TABLET (FP) PO PRN (22:36)
[2022-08-05] MEDS ORDERED: MAG HYDROX/AL HYDROX/SIMETH 30 ML UNIT-DOSE CUP PO PRN (22:36)
[2022-08-05] MEDS ORDERED: BENZONATATE 200 MG CAPSULE PO PRN (22:36)
[2022-08-05] MEDS ORDERED: NICOTINE POLACRILEX 2 MG GUM BUC PRN (22:36)
[2022-08-05] MEDS ORDERED: BENZOCAINE/MENTHOL (CHLORASEPTIC ) LOZENGE MM PRN (22:36)
[2022-08-05] MEDS ORDERED: diazePAM 5 MG TABLET PO PRN (22:42)
[2022-08-06] MEDS ORDERED: ALBUTEROL SO4 HFA INHALER IH PRN (10:05)
[2022-08-06] MEDS ORDERED: diazePAM 5 MG TABLET PO PRN (10:06)
[2022-08-06] MEDS: PRENATAL VITAMINS W/ FOLIC ACID TABLET (FP) PO SCH (10:41)
[2022-08-06] MEDS: HYDROCHLOROTHIAZIDE 25 MG TABLET (FP) PO SCH (10:41)
[2022-08-06] MEDS: diazePAM 5 MG TABLET PO SCH ×3 (10:43→22:36)
[2022-08-06] MEDS ORDERED: cloNIDine HCL 0.1 MG TABLET PO ONE (14:25)
[2022-08-06 18:32] VITALS: RESP 18
[2022-08-06] MEDS ORDERED: QUEtiapine FUMARATE 100 MG TABLET (FP) PO SCH (22:00)
[2022-08-06] MEDS ORDERED: THIAMINE HCL 100 MG TABLET (FP) PO SCH (22:00)
[2022-08-07] MEDS: diazePAM 5 MG TABLET PO SCH ×2 (05:55→10:54)
[2022-08-07 10:10] VITALS: BP 129/85; PULSE 69; TEMP 97.9
[2022-08-07] MEDS: HYDROCHLOROTHIAZIDE 25 MG TABLET (FP) PO SCH (10:54)
[2022-08-07] MEDS: PRENATAL VITAMINS W/ FOLIC ACID TABLET (FP) PO SCH (10:54)
[2022-08-08] MEDS ORDERED: diazePAM 5 MG TABLET PO SCH (06:00)
[2022-08-09] MEDS ORDERED: diazePAM 5 MG TABLET PO SCH (06:00)
[2022-08-10] MEDS ORDERED: diazePAM 5 MG TABLET PO ONE (06:00)
== END 2022-08-07 14:12 | disposition left against medical advice (07) | DRG 770 ==
LOC: YASAS 18:10 → Y3N 08-06 03:33 → UNDOADMIN 08-06 03:33 → Y3N 08-06 15:02
PROVIDERS: ADMIT Allergy & Immunology; ATTEND Surgery
PROC: HZ2ZZZZ Detoxification Services for Substance Abuse Treatment (ICD-10-PCS; principal; 2022-08-06)
DX: F10.230 Alcohol dependence with withdrawal, uncomplicated (principal); F14.20 Cocaine dependence, uncomplicated; F12.20 Cannabis dependence, uncomplicated; F17.210 Nicotine dependence, cigarettes, uncomplicated; F19.24 Other psychoactive substance dependence with psychoactive substance-induced mood disorder; I10 Essential (primary) hypertension; J45.20 Mild intermittent asthma, uncomplicated; B18.2 Chronic viral hepatitis C; Z59.01 Sheltered homelessness; Z56.0 Unemployment, unspecified; Z88.8 Allergy status to other drugs, medicaments and biological substances
CPT/HCPCS: 87635; 87811

== ENCOUNTER 2022-10-11 13:00 | Inpatient (IN) | payer OTHER ==
[2022-10-11 14:23] VITALS: RESP 18; BMI 33.3
[2022-10-11] MEDS ORDERED: METHOCARBAMOL 500 MG TABLET PO PRN (17:26)
[2022-10-11] MEDS ORDERED: BISMUTH SUBSALICYLATE 524 MG/30 ML PO PRN (17:26)
[2022-10-11] MEDS ORDERED: ACETAMINOPHEN 325 MG TABLET (FP) PO PRN (17:26)
[2022-10-11] MEDS ORDERED: BENZOCAINE/MENTHOL (CHLORASEPTIC ) LOZENGE MM PRN (17:26)
[2022-10-11] MEDS ORDERED: chlordiazePOXIDE HCL 25 MG CAPSULE PO PRN (17:26)
[2022-10-11] MEDS ORDERED: LOPERAMIDE HCL 2 MG CAPSULE PO PRN (17:26)
[2022-10-11] MEDS ORDERED: hydrOXYzine PAMOATE 25 MG CAPSULE (FP) PO PRN (17:26)
[2022-10-11] MEDS ORDERED: POLYETHYLENE GLYCOL (HEALTHYLAX) 3350 17 GM PACKET PO PRN (17:26)
[2022-10-11] MEDS ORDERED: NICOTINE POLACRILEX 2 MG GUM BUC PRN (17:26)
[2022-10-11] MEDS ORDERED: IBUPROFEN 600 MG TABLET (FP) PO PRN (17:26)
[2022-10-11] MEDS ORDERED: MAGNESIUM HYDROX 2400MG/30ML ORAL SUSPENSION 30 ML CUP PO PRN (17:26)
[2022-10-11] MEDS ORDERED: guaiFENesin 600 MG TABLET.ER (FP) PO PRN (17:26)
[2022-10-11] MEDS ORDERED: DICYCLOMINE HCL 10 MG CAPSULE PO PRN (17:26)
[2022-10-11] MEDS ORDERED: BENZONATATE 200 MG CAPSULE PO PRN (17:26)
[2022-10-11] MEDS ORDERED: NALOXONE HCL 0.4 MG/ML VIAL IM PRN (17:26)
[2022-10-11] MEDS ORDERED: NALOXONE HCL (KLOXXADO) 8 MG SPRAY NS PRN (17:26)
[2022-10-11] MEDS ORDERED: MAG HYDROX/AL HYDROX/SIMETH 30 ML UNIT-DOSE CUP PO PRN (17:26)
[2022-10-11] MEDS ORDERED: IBUPROFEN 400 MG TABLET (FP) PO PRN (17:26)
[2022-10-11] MEDS ORDERED: ONDANSETRON *ODT* 4 MG TABLET SL PRN (17:26)
[2022-10-11] MEDS ORDERED: MELATONIN 5 MG TABLETS PO SCH (22:00)
[2022-10-11] MEDS ORDERED: THIAMINE HCL 100 MG TABLET (FP) PO SCH (22:00)
[2022-10-11] MEDS: chlordiazePOXIDE HCL 25 MG CAPSULE PO SCH (22:04)
[2022-10-12] MEDS: chlordiazePOXIDE HCL 25 MG CAPSULE PO SCH (05:54)
[2022-10-12 06:43] VITALS: BP 140/80; PULSE 60; TEMP 97.3
[2022-10-12] MEDS ORDERED: PRENATAL VITAMINS W/ FOLIC ACID TABLET (FP) PO SCH (10:00)
[2022-10-12 10:11] LABS: HEMATOCRIT 45.4 % (35.4-49); HEMOGLOBIN 15.5 GM/dL (11.7-16.9); MCH 32.2 pg (25.7-33.7); MCHC 34.2 g/dl (32.0-35.9); MEAN CELL VOLUME 94.2 fl (80-96); MEAN PLT VOLUME 7.9 fl (7.5-11.1); PLATELET COUNT 230 10^3/uL (134-434); RBC 4.82 M/mm3 (4.00-5.60); RDW 13.7 % (11.9-15.9); WHITE BLOOD COUNT 5.6 K/mm3 (4.0-10.0)
[2022-10-12 10:31] LABS: POTASSIUM 4.7 mmol/L (3.5-5.1)
[2022-10-12 10:39] LABS: ALBUMIN 3.7 g/dl (3.4-5.0); CALCIUM 9.1 mg/dL (8.5-10.1)
[2022-10-12 10:40] LABS: BLOOD UREA NITROGEN 10.7 mg/dL (7-18)
[2022-10-12 10:44] LABS: BILIRUBIN,TOTAL 0.4 mg/dL (0.2-1); TOT PROT 6.9 g/dl (6.4-8.2)
[2022-10-12] MEDS ORDERED: PATIENT'S OWN MEDICATION (NON-FORMULARY) (Albuterol Sulfate [Proair Respiclick] 90 MCG Aer IH PRN (14:50)
[2022-10-12] MEDS ORDERED: HYDROCHLOROTHIAZIDE 25 MG TABLET (FP) PO SCH (15:00)
[2022-10-13] MEDS ORDERED: chlordiazePOXIDE HCL 25 MG CAPSULE PO SCH (05:00)
[2022-10-14] MEDS ORDERED: chlordiazePOXIDE HCL 10 MG CAPSULE PO PRN
[2022-10-14] MEDS ORDERED: chlordiazePOXIDE HCL 10 MG CAPSULE PO SCH (05:00)
[2022-10-15] MEDS ORDERED: chlordiazePOXIDE HCL 10 MG CAPSULE PO SCH (05:00)
[2022-10-16] MEDS ORDERED: chlordiazePOXIDE HCL 10 MG CAPSULE PO ONE (05:00)
== END 2022-10-12 09:39 | disposition left against medical advice (07) | DRG 770 ==
LOC: YASAS 13:00 → Y3N 19:41 → Y6N 10-12 08:28
PROVIDERS: ADMIT Allergy & Immunology; ATTEND Allergy & Immunology
PROC: HZ2ZZZZ Detoxification Services for Substance Abuse Treatment (ICD-10-PCS; principal; 2022-10-11)
DX: F10.230 Alcohol dependence with withdrawal, uncomplicated (principal); F17.210 Nicotine dependence, cigarettes, uncomplicated; I10 Essential (primary) hypertension; J45.20 Mild intermittent asthma, uncomplicated; Z86.59 Personal history of other mental and behavioral disorders; Z88.8 Allergy status to other drugs, medicaments and biological substances; Z56.0 Unemployment, unspecified
CPT/HCPCS: 36415; 80053; 85027; 86780; 87635